=== PATIENT | male | born 1945 | race Caucasian/White ===

== ENCOUNTER 2017-12-15 22:00 | Observation (INO) | payer OTHER, BC ==
--- OUTSIDE RECORDS SUMMARY | 2017-12-15 22:02 | XMS REPORT | Clinical Summary ---
:1945 Author Organization [facility] Address [address] [place] [id number] Care Team Providers Name Role Phone Asked, No Pcp Primary Care Provider Unavailable Allergies Not on File Current Medications Not on file Active Problems Not on file Encounters Date Type Specialty Care Team Description 05/30/2017 Lab Lab George Limon Jr., Gout, unspecified cause, unspecified chronicity, unspecified site (Primary Dx) after 12/14/2016 Social History Tobacco Use Types Packs/Day Years Used Date Never Assessed Sex Assigned at Date Recorded Not on file Last Filed Vital Signs Not on file Plan of Treatment Health Maintenance Due Date Last Done Comments COLONOSCOPY 1997 SHINGRIX VACCINE (#1) 1997 ZOSTER VACCINE 2007 PNEUMOCOCCAL POLYSACCHARIDE VACCINE AGE 65 AND OVER 01/16/2012 PNEUMOCOCCAL-13 01/16/2012 INFLUENZA VACCINE 03/12/2018 Results Body fluid consult (05/30/2017 11:50 AM) Component Value Ref Range Body fluid consult DoneComment: PER DR. TREJO: RESULTS CORRELATE Specimen Performing Laboratory Fluid [facility] DEPARTMENT OF PATHOLOGY AND GENOMIC MEDICINE [address] [place] [address] Crystal analysis (05/30/2017 11:50 AM) Component Value Ref Range Crystal analysis specimen type Joint Monosodium urate None seen None seen CPPD crystals None seen None seen Specimen Performing Laboratory Fluid [facility] DEPARTMENT OF PATHOLOGY AND GENOMIC MEDICINE [address] [place] [address] Cell count and differential, body fluid (05/30/2017 11:50 AM) Component Value Ref Range Misc fluid type Synovial Color, fluid Pale yellow Appearance, fluid Slightly hazy RBC, fluid 4,888 /CMM Nucleated cells, fluid 2,675 /CMM Fluid mononuclear cell 13 Neutrophils, fluid 79 % Lymphocytes, fluid 8 % Specimen Performing Laboratory Fluid [facility] DEPARTMENT OF PATHOLOGY AND GENOMIC MEDICINE [address] [place] [address] after 12/14/2016 Insurance Payer Benefit Plan / Group Subscriber ID Type Phone Address MEDICARE MEDICARE PART A AND B xxxxxxxxxx Medicare [place], [place] BCBS BCBS CHOICE PPO/F[employer]ER[employer] EMPL PPO xxxxxxxxxxxx PPO Work: [address] [place], [place] Home: [id number]
--- OUTSIDE RECORDS SUMMARY | 2017-12-15 22:03 | XMS REPORT | Clinical Summary ---
:1945 Author Organization [facility] Address [address] [place] [address] Phone Care Team Providers Name Role Phone Unavailable Primary Care Provider Unavailable Allergies Active Allergy Reactions Severity Noted Date Comments Salicylates Anaphylaxis High 03/16/2014 Fish Containing Products Nausea And Vomiting 03/16/2014 Influenza Virus Vaccines Other (See Comments) 08/14/2014 fever Metoprolol 03/26/2016 Timolol Maleate Swelling 02/23/2016 Current Medications Prescription Sig. Disp. Refills Start End Status Date Date tamsulosin (FLOMAX) Take 0.4 mg by Active 0.4 mg Cp24 24 hr mouth daily. capsule docusate sodium Take 100 mg by Active (COLACE) 100 MG mouth daily. capsule multivitamin per Take 1 tablet by Active tablet mouth daily. insulin glargine Inject 25 Units Active (LANTUS) 100 subcutaneously unit/mL injection nightly Use as directed. coenzyme Q10 200 mg Take 200 mg by Active capsule mouth daily. cholecalciferol Take 1,000 Units Active (VITAMIN D3) 1,000 by mouth 2 (two) unit tablet times daily. insulin aspart Inject 5-15 Units Active (NOVOLOG) 100 subcutaneously 3 unit/mL injection (three) times daily before meals. azelastine 1 spray by Nasal Active (ASTELIN) 137 mcg route 2 (two) (0.1 %) nasal spray times daily Use in each nostril as directed . penicillin v Take 1 tablet (500 4 tablet 2 Active potassium (VEETID) mg total) by mouth 6 500 MG tablet as needed for up to 2 doses 3 tabs 1 hr prior to dental work and 1 tab 3 hrs after.. resveratrol 100 mg Take by mouth. Active Cap gemfibrozil (LOPID) Take 1 tablet (600 180 tablet 5 02/22/ Active 600 MG tablet mg total) by mouth 7 018 2 (two) times daily before meals. bromfenac Apply to eye(s). Active (PROLENSA) 0.07 % Drop ofloxacin (FLOXIN) 10 drops daily. Active 0.3 % otic solution prednisoLONE 1 drop 4 (four) Active acetate (PRED times daily. FORTE) 1 % ophthalmic suspension liraglutide 0.6 Inject 1.6 mg Active mg/0.1 mL (18 mg/3 subcutaneously mL) PnIj daily. sucralfate Take 1 g by mouth Active (CARAFATE) 1 gram 4 (four) times tablet daily. NIFEdipine (ADALAT Take 1 tablet (60 360 tablet 3 Active CC) 60 MG 24 hr mg total) by mouth 8 019 tabletIndications: 3 (three) times S/P AVR, Aortic daily 30 mg at stenosis, severe, bedtime. Hyperlipidemia, unspecified hyperlipidemia type, Essential hypertension with goal blood pressure less than 140/90, Bradycardia with 41-50 beats per minute cloNIDine HCl Take 1 tablet (0.2 270 tablet 3 Active (CATAPRES) 0.2 MG mg total) by mouth 8 019 tablet 3 (three) times daily. furosemide (LASIX) TAKE 1 TABLET BY 180 tablet 5 Active 80 MG tablet MOUTH TWICE DAILY 8 hydrALAZINE TAKE 1 TABLET BY 360 tablet 0 Active (APRESOLINE) 100 MG MOUTH FOUR TIMES 8 tabletIndications: DAILY Heart murmur, Palpitations cloNIDine HCl TAKE 1 TABLET BY 180 tablet 0 Active (CATAPRES) 0.2 MG MOUTH TWICE DAILY 8 tabletIndications: Aortic stenosis, severe, S/P AVR, Shortness of breath, Hyperlipidemia, unspecified hyperlipidemia type, Essential hypertension with goal blood pressure less than 140/90 NIFEdipine (ADALAT TAKE 1 TABLET BY 360 tablet 0 Active CC) 60 MG 24 hr MOUTH THREE TIMES 8 tabletIndications: DAILY S/P AVR, Aortic stenosis, severe, Hyperlipidemia, unspecified hyperlipidemia type, Essential hypertension with goal blood pressure less than 140/90, Bradycardia with 41-50 beats per minute hydrALAZINE Take 1 tablet (100 360 tablet 4 Discontinued (APRESOLINE) 100 MG mg total) by mouth 6 017 tabletIndications: 4 (four) times Heart murmur, daily for 90 days. Palpitations clopidogrel Take 1 tablet (75 30 tablet 3 (PLAVIX) 75 mg mg total) by mouth 7 018 tablet daily. albuterol HFA Inhale 2 puffs by 1 Inhaler 7 (VENTOLIN HFA) 90 mouth via inhaler 7 018 mcg/actuation every 4 (four) inhaler hours as needed for Wheezing or Shortness of Breath. furosemide (LASIX) Take 80 mg by Discontinued 20 MG mouth daily . 7 018 tabletIndications: S/P AVR, Aortic stenosis, severe, Hyperlipidemia, unspecified hyperlipidemia type, Essential hypertension with goal blood pressure less than 140/90, Bradycardia with 41-50 beats per minute NIFEdipine (ADALAT Take 1 tablet (60 360 tablet 3 Discontinued CC) 60 MG 24 hr mg total) by mouth 7 018 tabletIndications: 4 (four) times S/P AVR, Aortic daily 30 mg at stenosis, severe, bedtime. Hyperlipidemia, unspecified hyperlipidemia type, Essential hypertension with goal blood pressure less than 140/90, Bradycardia with 41-50 beats per minute cloNIDine HCl Take 1 tablet (0.1 270 tablet 3 Discontinued (CATAPRES) 0.1 MG mg total) by mouth 7 018 tablet 3 (three) times daily. NIFEdipine Take 1 tablet (90 90 tablet 3 Discontinued (PROCARDIA XL) 90 mg total) by mouth 7 018 MG (OSM) 24 hr daily. tablet furosemide (LASIX) TAKE 1 TABLET BY 180 tablet 0 Discontinued 80 MG tablet MOUTH TWICE DAILY 7 018 hydrALAZINE TAKE 1 TABLET BY 360 tablet 0 Discontinued (APRESOLINE) 100 MG MOUTH FOUR TIMES 7 018 tabletIndications: DAILY Heart murmur, Palpitations cloNIDine HCl Take 2 tablets 270 tablet 3 Discontinued (CATAPRES) 0.1 MG (0.2 mg total) by 8 018 tablet mouth 3 (three) times daily. predniSONE Take 3 tablets (15 21 tablet 0 (DELTASONE) 5 MG mg total) by mouth 8 018 tablet daily for 7 days. temazepam Take 1 capsule (15 30 capsule 2 (RESTORIL) 15 mg mg total) by mouth 8 018 capsule every night as needed for Sleep for up to 30 days. Max Daily Amount: 15 mg Active Problems Problem Noted Date Pulmonary edema 08/10/2017 Acute exacerbation of CHF (congestive heart failure) ([facility]) 08/10/2017 Chest pain 07/18/2016 Acute on chronic renal insufficiency 07/18/2016 Hypertensive urgency 07/18/2016 Symptomatic bradycardia 03/26/2016 Bradycardia with 41-50 beats per minute 03/26/2016 Essential hypertension with goal blood pressure less than 140/90 03/22/2016 Hyperlipidemia, unspecified hyperlipidemia type 02/21/2016 Shortness of breath 08/14/2014 Fever 08/14/2014 S/P AVR 05/04/2014 CAD (coronary artery disease) 05/04/2014 Aortic stenosis, severe 04/21/2014 Encounters Date Type Specialty Care Team Description 11/12/2017 Procedure Pass 10/01/2017 Office Visit Cardiology Pete Granger James T., MD severe (Primary Dx);S/P AVR;Hyperlipidemia, unspecified hyperlipidemia type;Essential hypertension with goal blood pressure less than 140/90;Hypertensive urgency;Acute on chronic renal insufficiency 10/01/2017 Refill Cardiology [place] S/P AVR;Aortic Ely Cramer MD stenosis, severe;Hyperlipidemia, unspecified hyperlipidemia type;Essential hypertension with goal blood pressure less than 140/90;Bradycardia with 41-50 beats per minute 10/01/2017 Orders Only General Internal Medicine 09/20/2017 Refill Cardiology Pete Granger James T., MD severe;S/P AVR;Shortness of breath;Hyperlipidemia, unspecified hyperlipidemia type;Essential hypertension with goal blood pressure less than 140/90 09/20/2017 Refill Cardiology [place] [facility] Ely Cramer MD murmur;Palpitations 09/12/2017 Refill Cardiology Ely Granger MD 08/22/2017 Office Visit Cardiology [place] Aortic stenosisEly MD severe (Primary Dx);S/P AVR;Shortness of breath;Hyperlipidemia, unspecified hyperlipidemia type;Essential hypertension with goal blood pressure less than 140/90 08/10/2017 - [facility] [place] Shortness of breath 08/15/2017 Encounter (Primary Dx);Acute [place] congestive heart Ely Cramer MD failure, unspecified Robel Hess congestive heart MD Finn failure type ([facility]);Anasarca;Hyperte nsive urgency;S/P AVR;Aortic stenosis, severe;Hyperlipidemia, unspecified hyperlipidemia type;Essential hypertension with goal blood pressure less than 140/90;Bradycardia with 41-50 beats per minute 08/10/2017 Orders Only General Internal Medicine 07/09/2017 [facility] Nasal congestion;Cough Encounter MD Zita 07/09/2017 [facility] Nasal congestion;Cough Encounter MD Zita 07/09/2017 Outside Orders [facility] Nasal congestion MD Zita (Primary Dx);Cough 06/23/2017 Refill Cardiology [place] [facility] Ely Cramer MD murmur;Palpitations 06/09/2017 Refill Cardiology Ely Granger MD 05/21/2017 Office Visit Cardiology [place] Aortic stenosisEly MD severe (Primary Dx);S/P AVR;Shortness of breath;Hyperlipidemia, unspecified hyperlipidemia type;Essential hypertension with goal blood pressure less than 140/90;Symptomatic bradycardia;Bradycardi a with 41-50 beats per minute;Acute on chronic renal insufficiency;Hyperten sive urgency 05/21/2017 Orders Only General Internal Medicine 04/29/2017 Hospital Radiology Irr, [place] Myelopathy Encounter MD Chandler ([facility]);Bradycardia with 41-50 beats per minute 03/15/2017 Hospital Radiology Irr, [place] Lumbar stenosis with Rickey Arteaga MD neurogenic claudication 03/15/2017 Hospital Radiology Irr, [place] Cervical myelopathy Encounter MD Chandler ([facility]) 03/07/2017 Outside Orders Central Scheduling IrrLamonte Cervical myelopathy MD Chandler ([facility]) (Primary Dx);Lumbar stenosis with neurogenic claudication;Myelopath y ([facility]) 03/01/2017 Telephone Cardiology Ely Granger MD 02/27/2017 Procedure visit Radiology Pete Granger James T., MD severe;S/P AVR;Shortness of breath;Hyperlipidemia, unspecified hyperlipidemia type;Essential hypertension with goal blood pressure less than 140/90;Acute on chronic renal insufficiency;Hyperten sive urgency;Claudication of both lower extremities (HCC) 02/22/2017 Office Visit Cardiology [place] Claudication of both Ely Cramer MD lower extremities (HCC) (Primary Dx);Aortic stenosis, severe;S/P AVR;Shortness of breath;Hyperlipidemia, unspecified hyperlipidemia type;Essential hypertension with goal blood pressure less than 140/90;Acute on chronic renal insufficiency;Hyperten sive urgency 02/22/2017 Orders Only General Internal Medicine 01/28/2017 Office Visit Cardiology Pete Granger James T., MD severe (Primary Dx);S/P AVR;Shortness of breath;Hyperlipidemia, unspecified hyperlipidemia type;Essential hypertension with goal blood pressure less than 140/90;Acute on chronic renal insufficiency;Hyperten sive urgency after 12/14/2016 Family History Medical History Relation Name Comments Heart disease Father Diabetes Maternal Aunt COPD Mother COPD Diabetes Paternal Uncle Relation Name Status Comments Father Maternal Aunt Mother Paternal Uncle Social History Tobacco Use Types Packs/Day Years Used Date Never Smoker Smokeless Tobacco: Never Used Alcohol Use Drinks/Week oz/Week Comments No Sex Assigned at Date Recorded Not on file Last Filed Vital Signs Vital Sign Reading Time Taken Blood Pressure 188/81 10/01/2017 9:44 AM [employer] Pulse 76 10/01/2017 9:39 AM [employer] Temperature 37 C (98.6 F) 10/01/2017 9:39 AM [employer] Respiratory Rate 18 10/01/2017 9:39 AM [employer]ERSON Oxygen Saturation 96% 10/01/2017 9:39 AM [employer] Inhaled Oxygen Concentration - - Weight 97.5 kg (215 lb) 10/01/2017 9:39 AM [employer] P[employer] Height 177.8 cm (5' 10") 10/01/2017 9:39 AM [employer] Body Mass Index 30.85 10/01/2017 9:39 AM [employer] Plan of Treatment Date Type Specialty Care Team Description 12/24/2017 Office Visit Cardiology Ely Granger MD [facility] [address] [place] [address] [phone] Implants Implanted Type Area Machine Repair Person Device Expiration Model / Identifier Date Serial / Lot Lead Pacemkr Capsur Novus 45cm 5076-45 - [id number] Pacemaker N/A: [employer]: CARD 05/10/2018 5076-45 / Implanted: Qty: 1 on 07/20/2016 by Bob Gallegos MD Lead Heart RHY:DISEASE MGT [id number] / Lead Pacemkr Capsur Novus 58x1 5076-58 - [id number] Pacemaker Left: [employer] :CARD 03/16/2018 5076-58 / Implanted: Qty: 1 on 07/20/2016 by Bob Gallegos MD Lead Heart RHY:DISEASE MGT [id number] / Pacemaker Ipg Advisa [id number] - [id number] Pacemakers Left: [employer]:CARD 11/06/2017 [id number] / Implanted: Qty: 1 on 07/20/2016 by Bob Gallegos MD Chest RHY:DISEASE MGT [id number] / Wall Valve,Trifecta 21mm Tissue Aortic Supra Annular Stented Titanium Strl Lf - [id number] Valves N/A: [employer] 01/03/2016 [id number] / Implanted: Qty: 1 on 04/23/2014 by Jesús Zhao MD [employer] [id number] / Results ECG 12 lead (10/01/2017 10:41 AM)Only the most recent of5 resultswithin the time period is included. Specimen Performing Laboratory [facility] Ventricular Rate 69 BPM Atrial Rate 69 BPM P-R Interval 180 ms QRS Duration 154 ms Q-T Interval 442 ms QTC Calculation(Bazett) 473 ms P [place] 77 degrees R [place] -47 degrees T [place] 54 degrees Sinus rhythm with Premature supraventricular complexes Right bundle branch block Left anterior fascicular block Bifascicular block Left ventricular hypertrophy with QRS widening and repolarization abnormality Abnormal ECG When compared with ECG of 22-AUG-2017 09:55, Sinus rhythm has replaced Electronic ventricular pacemaker Confirmed by MD ELKIN, ELY Khan ([id number]) on 10/02/2017 10:30:08 AM Procedure Note Interface, External Ris In - 10/02/2017 10:30 AM [employer] Ventricular Rate 69 BPM Atrial Rate 69 BPM P-R Interval 180 ms QRS Duration 154 ms Q-T Interval 442 ms QTC Calculation(Bazett) 473 ms P [place] 77 degrees R [place] -47 degrees T [place] 54 degrees Sinus rhythm with Premature supraventricular complexes Right bundle branch block Left anterior fascicular block Bifascicular block Left ventricular hypertrophy with QRS widening and repolarization abnormality Abnormal ECG When compared with ECG of 22-AUG-2017 09:55, Sinus rhythm has replaced Electronic ventricular pacemaker Confirmed by MD ELKIN, ELY Khan ([id number]) on 10/02/2017 10:30:08 AM CBC with platelet count + automated diff (10/01/2017 9:37 AM)Only the most recent of7 resultswithin the time period is included. Component Value Ref Range WBC 6.2 3.5 - 10.5 K/L RBC 3.30 (L) 4.63 - 6.08 M/L Hemoglobin 10.1 (L) 13.7 - 17.5 GM/DL Hematocrit 29.4 (L) 40.1 - 51.0 % MCV 89.1 79.0 - 92.2 fL MCH 30.6 25.7 - 32.2 pg MCHC 34.4 32.3 - 36.5 GM/DL RDW 12.7 11.6 - 14.4 % Platelets 263 150 - 450 K/CU MM MPV 10.7 9.4 - 12.4 fL nRBC 0 0 - 0 /100 WBC % Neutros 53 % % Lymphs 35 % % Monos 10 % % Eos 2 % % Baso 0 % # Neutros 3.28 1.78 - 5.38 K/L # Lymphs 2.18 1.32 - 3.57 K/L # Monos 0.59 0.30 - 0.82 K/L # Eos 0.12 0.04 - 0.54 K/L # Baso 0.02 0.01 - 0.08 K/L Immature Granulocytes-Relative 1 0 - 1 % Specimen Performing Laboratory Blood [facility] [address] [address] CBC with platelet count + automated diff (10/01/2017 9:37 AM)Only the most recent of7 resultswithin the time period is included. Specimen Performing Laboratory Blood Narrative The following orders were created for panel order CBC with platelet count + automated diff. Procedure Abnormality Status --------- ------ CBC with platelet count ...[[id number]]AbnormalFinal result Please view results for these tests on the individual orders. TSH (10/01/2017 9:37 AM)Only the most recent of4 resultswithin the time period is included. Component Value Ref Range TSH 3.01 0.35 - 4.94 uIU/mL Specimen Performing Laboratory Blood [address] [address] PSA (10/01/2017 9:37 AM)Only the most recent of4 resultswithin the time period is included. Component Value Ref Range PSA 12.5 (H) 0.0 - 4.0 ng/mL Specimen Performing Laboratory Blood [address] [address] B-type Natriuretic Factor (BNP) (10/01/2017 9:37 AM)Only the most recent of8 resultswithin the time period is included. Component Value Ref Range BNP 763 (H) 0 - 100 pg/mL Specimen Performing Laboratory Blood [address] [address] Liver Function Panel (10/01/2017 9:37 AM)Only the most recent of4 resultswithin the time period is included. Component Value Ref Range Protein, Total 7.5 6.0 - 8.3 gm/dL Albumin 4.1 3.5 - 5.0 g/dL Total Bilirubin 0.5 0.2 - 1.2 mg/dL Bilirubin, Direct 0.1 0.1 - 0.5 mg/dL Alkaline Phosphatase 68 40 - 150 U/L AST 16 5 - 34 U/L ALT 13 6 - 55 U/L Specimen Performing Laboratory Blood [address] [address] Lipid panel (10/01/2017 9:37 AM)Only the most recent of4 resultswithin the time period is included. Component Value Ref Range Triglycerides 184 mg/dL Cholesterol 265 mg/dL HDL 29 mg/dL LDL Calculated 199 mg/dL Specimen Performing Laboratory [address] [address] Narrative Triglyceride Reference Range: Low Risk <150 [id number] High Risk 200-499 Very High Risk>=500 Cholesterol Reference Range: Low Risk <200 [id number] High Risk>240 HDL Cholesterol Reference Range: Low Risk >=60 High Risk <40 LDL Cholesterol Reference Range: Optimal<100 Near Ekasidm843-342 [id number] Dnng050-100 Very High >=190 Basic Metabolic Panel (10/01/2017 9:37 AM)Only the most recent of10 resultswithin the time period is included. Component Value Ref Range Sodium 136 136 - 145 meq/L Potassium 3.7 3.5 - 5.1 meq/L Chloride 101 98 - 107 meq/L CO2 23 22 - 29 meq/L BUN 55 (H) 7 - 21 mg/dL Creatinine 3.01 (H) 0.57 - 1.25 mg/dL Glucose 150 (H) 70 - 105 mg/dL Calcium 10.1 8.4 - 10.2 mg/dL EGFR 21Comment: ESTIMATED GFR IS NOT ACCURATE mL/min/1.73 sq m CREATININE CLEARANCE IN PREDICTING GLOMERULAR FILTRATION RATE. ESTIMATED GFR IS NOT APPLICABLE FOR DIALYSIS PATIENTS. Specimen Performing Laboratory Blood [address] [address] RHYTHM STRIP - SCAN (08/16/2017 1:52 PM)POC-Glucose meter (08/15/2017 12:04 PM) Only the most recent of21 resultswithin the time period is included. Component Value Ref Range POC-Glucose Meter 206 (H)Comment: TESTED AT [address] 70 - 110 mg/[place] [id number] Specimen Performing Laboratory Blood [address] [address] aPTT (08/15/2017 6:34 AM)Only the most recent of10 resultswithin the time period is included. Component Value Ref Range PTT 112.0 (H) 22.5 - 36.0 seconds Specimen Performing Laboratory Blood [address] [address] Magnesium (08/15/2017 5:16 AM)Only the most recent of6 resultswithin the time period is included. Component Value Ref Range Magnesium 1.9 1.6 - 2.6 mg/dL Specimen Performing Laboratory Blood - Arm, Right [address] [address] ECHOCARDIOGRAM REPORT - SCAN (08/13/2017 4:59 PM)2D Echo W/Doppler(CW/PW/Color ) (08/13/2017 8:13 AM) Component Value Ref Range Ejection Fraction Specimen Performing Laboratory [facility] E[facility] EFRAIN CPACS Narrative Transthoracic Echocardiography Report (TTE) Demographics Patient NameHUSEYIN ALARCON Date of Study08/13/2017 Michela WONG Male Visit [id number] Unknown Room NumberOP Number Date of 1945Referring Yenny Poole Physician Age 72 year(s)SonographerOscar Carl, [facility] Employment Trainer Marjan Gale, NADJACSInterpreting Quinton Martin, PhysicianMD Procedure Type of Study TTE procedure:2DECHO W DOPPLER(CW/PW/COLOR) (Routine) Indications:Shortness of breath. Clinical History A/V PROS. CKD, DIABETES, HTN, CANCER, COPD, ARRHYTHMIA, GOUT HGB 9.4 HCT 28.6 % Contrast Medium: Definity. Amount - 2 ml Height: 70 inches Weight: 98.88 kg (218 lbs) BSA: 2.17 m^2 BMI: 31.28 kg/m^2 HR: 69 bpm BP: 226/96 mmHg Summary LV endocardium is adequately visualized with IV ultrasound enhancing agent. The left ventricle is chamber size (by vol index) is normal (male - LVED vol - 34-74ml/m2). No evidence of LV hypertrophy. All of the LV segments contract normally . Global LV systolic function normal . LVEF by Thomason's method of disk assessment is normal (>60%) . The LVEF was measured using Thomason's bi-plane method of disk . Grade 2 diastolic dysfunction (moderately increased LA pressure). A stented biologic AoV prosthesis is visualized . The prosthetic AoV appears well-seated. No evidence of aortic regurgitation. Previous Study In comparison with the prior exam on 08/30/2016 there are no significant changes. Signature Findings Technical Quality: Technically adequate exam. Rhythm/BPRegular sinus rhythm during the exam. Left Ventricle LV endocardium is adequately visualized with IV ultrasound enhancing agent. The left ventricle is chamber size (by vol index) is normal (male - LVED vol - 34-74ml/m2). No evidence of LV hypertrophy. All of the LV segments contract normally . Global LV systolic function normal . LVEF by Thomason's method of disk assessment is normal (>60%) . The LVEF was measured using Thomason's bi-plane method of disk . Grade 2 diastolic dysfunction (moderately increased LA pressure). Left AtriumLA size is severely enlarged (>48 ml/m2) . Right VentricleRV chamber size appears mildly enlarged by limited views . Global RV systolic function is normal . Right Atrium The RA is well visualized. RA cavity size is normal . Aortic Valve A stented biologic AoV prosthesis is visualized . The prosthetic AoV appears well-seated. No evidence of aortic regurgitation. Mitral Valve Mild MV leaflet thickening. Mild mitral regurgitation. Mild mitral annular calcification. Tricuspid ValveTV structure is normal. A trace of tricuspid regurgitation. Unable to estimate peak systolic PA pressure; inadequate TR velocity signal. Pulmonic Valve Normal PV structure and function by limited views and Doppler. AortaAortic root size (SInus of Valsalva diameter) is normal . PericardiumNo pericardial effusion is visualized. IVC/SVC/PA/PV/PleuralThe inferior vena cava is adequately visualized. The inferior vena cava size is normal . The estimated RA pressure by IVC dynamics 5-10mmHg . Chambers/Structures Left Atrium LA Volume: 108.36 mlLA Area: 29.12 cm^ 2 LA Vol. Index: 50 ml/m^2 Left Ventricle LVIDd: 4.98 cm LVIDs: 2.22 cm LV Septum Diastolic: 1.15 cm LV PW Diastolic: 1.11 cmLV FS: 55.4 % LVEDV Thomason's:117.41 ml LVESV Thomason's:39.69 mlLVEDVI: 54 ml/ m^2 LVEF Thomason's: 64.2 %LVESVI: 18 ml/m^2 LVOT Diameter: 1.93 cm Aorta Ao Root S of Madhuri.: 2.32 cm Doppler/Quantitative Measurements Mitral Valve MV Peak E-Wave: 1.19 m/sMV Peak A-Wave: 1.05 m/s E/ A Ratio: 1.14 Peak Gradient: 5.69 mmHg Deceleration Time: 149.3 msec MV Slick. Peak: Tissue Doppler E' Septal Velocity: 0.06 m/sA' Septal Velocity: 0.08 m/s E/ E': 19.96 Aortic Valve Peak Velocity: 2.34 m/sMean Velocity: 1.45 m/s Peak Gradient: 21.99 mmHgMean Gradient: 9.87 mmHg AV Area (continuity): 1.51 cm^2 AV VTI: 48.94 cm AV DVI: 0.52 LVOT Peak Velocity: 1.21 m/s Peak Gradient: 5.89 mmHg Mean Velocity: 0.73 m/s Mean Gradient: 2.53 mmHg LVOT Diameter: 1.93 cmLVOT VTI: 25.35 cm LVOT Area: 2.93 cm^2LVOT SV:74.12 ml LVOT CO: 5.11 l/min LVOT CI: 2.35 l/min/m^2 Procedure Note Interface, External Ris In - 08/13/2017 4:03 PM [employer] SALES PERSON Transthoracic Echocardiography Report (TTE) Demographics Patient Name HUSEYIN ALARCON Date of Study 08/13/2017 Michela WONG Gender Male Visit Number [id number] Race Unknown Room Number OP Number Date of 1945 Referring Yenny Poole Physician Age 72 year(s) Commercial Carpet Installer Juarez Henry, [facility] Employment Trainer Marjan Gale RDCS Interpreting Quinton Martin, Physician Procedure Type of Study TTE procedure:2DECHO W DOPPLER(CW/PW/COLOR) (Routine) Indications:Shortness of breath. Clinical History A/V PROS. CKD, DIABETES, HTN, CANCER, COPD, ARRHYTHMIA, GOUT HGB 9.4 HCT 28.6 % Contrast Medium: Definity. Amount - 2 ml Height: 70 inches Weight: 98.88 kg (218 lbs) BSA: 2.17 m^2 BMI: 31.28 kg/m^2 HR: 69 bpm BP: 226/96 mmHg Summary LV endocardium is adequately visualized with IV ultrasound enhancing agent. The left ventricle is chamber size (by vol index) is normal (male - LVED vol - 34-74ml/m2). No evidence of LV hypertrophy. All of the LV segments contract normally . Global LV systolic function normal . LVEF by Thomason's method of disk assessment is normal (>60%) . The LVEF was measured using Thomason's bi-plane method of disk . Grade 2 diastolic dysfunction (moderately increased LA pressure). A stented biologic AoV prosthesis is visualized . The prosthetic AoV appears well-seated. No evidence of aortic regurgitation. Previous Study In comparison with the prior exam on 08/30/2016 there are no significant changes. Signature Findings Technical Quality: Technically adequate exam. Rhythm/BP Regular sinus rhythm during the exam. Left Ventricle LV endocardium is adequately visualized with IV ultrasound enhancing agent. The left ventricle is chamber size (by vol index) is normal (male - LVED vol - 34-74ml/m2). No evidence of LV hypertrophy. All of the LV segments contract normally . Global LV systolic function normal . LVEF by Thomason's method of disk assessment is normal (>60%) . The LVEF was measured using Thomason's bi-plane method of disk . Grade 2 diastolic dysfunction (moderately increased LA pressure). Left Atrium LA size is severely enlarged (>48 ml/m2) . Right Ventricle RV chamber size appears mildly enlarged by limited views . Global RV systolic function is normal . Right Atrium The RA is well visualized. RA cavity size is normal . Aortic Valve A stented biologic AoV prosthesis is visualized . The prosthetic AoV appears well-seated. No evidence of aortic regurgitation. Mitral Valve Mild MV leaflet thickening. Mild mitral regurgitation. Mild mitral annular calcification. Tricuspid Valve TV structure is normal. A trace of tricuspid regurgitation. Unable to estimate peak systolic PA pressure; inadequate TR velocity signal. Pulmonic Valve Normal PV structure and function by limited views and Doppler. Aorta Aortic root size (SInus of Valsalva diameter) is normal . Pericardium No pericardial effusion is visualized. IVC/SVC/PA/PV/Pleural The inferior vena cava is adequately visualized. The inferior vena cava size is normal . The estimated RA pressure by IVC dynamics 5-10mmHg . Chambers/Structures Left Atrium LA Volume: 108.36 ml LA Area: 29.12 cm^2 LA Vol. Index: 50 ml/m^2 Left Ventricle LVIDd: 4.98 cm LVIDs: 2.22 cm LV Septum Diastolic: 1.15 cm LV PW Diastolic: 1.11 cm LV FS: 55.4 % LVEDV Thomason's:117.41 ml LVESV Thomason's:39.69 ml LVEDVI: 54 ml/m^2 LVEF Thomason's: 64.2 % LVESVI: 18 ml/m^2 LVOT Diameter: 1.93 cm Aorta Ao Root S of Madhuri.: 2.32 cm Doppler/Quantitative Measurements Mitral Valve MV Peak E-Wave: 1.19 m/s MV Peak A-Wave: 1.05 m/s E/A Ratio: 1.14 Peak Gradient: 5.69 mmHg Deceleration Time: 149.3 msec MV Slick. Peak: Tissue Doppler E' Septal Velocity: 0.06 m/s A' Septal Velocity: 0.08 m/s E/E': 19.96 Aortic Valve Peak Velocity: 2.34 m/s Mean Velocity: 1.45 m/s Peak Gradient: 21.99 mmHg Mean Gradient: 9.87 mmHg AV Area (continuity): 1.51 cm^2 AV VTI: 48.94 cm AV DVI: 0.52 LVOT Peak Velocity: 1.21 m/s Peak Gradient: 5.89 mmHg Mean Velocity: 0.73 m/s Mean Gradient: 2.53 mmHg LVOT Diameter: 1.93 cm LVOT VTI: 25.35 cm LVOT Area: 2.93 cm^2 LVOT SV:74.12 ml LVOT CO: 5.11 l/min LVOT CI: 2.35 l/min/m^2 Troponin I (08/13/2017 5:15 AM)Only the most recent of5 resultswithin the time period is included. Component Value Ref Range Troponin I 0.41 (HH) 0.00 - 0.03 ng/mL Specimen Performing Laboratory Blood - Arm, [address] [address] Narrative Troponin I (TnI) levels must be interpreted in the context of the presenting symptoms and the clinical findings. Elevated TnI levels indicate myocardial damage, but are not specific for ischemic heart disease. Elevated TnI levels are seen in patients with other cardiac conditions (including myocarditis and congestive heart failure), and slight TnI elevations occur in patients with other conditions, including sepsis, renal failure, acidosis, acute neurological disease, and persistent tachyarrhythmia. CBC (Hemogram only) (08/13/2017 5:15 AM)Only the most recent of3 resultswithin the time period is included. Component Value Ref Range WBC 7.2 3.5 - 10.5 K/L RBC 3.18 (L) 4.63 - 6.08 M/L Hemoglobin 9.4 (L) 13.7 - 17.5 GM/DL Hematocrit 28.6 (L) 40.1 - 51.0 % MCV 89.9 79.0 - 92.2 fL MCH 29.6 25.7 - 32.2 pg MCHC 32.9 32.3 - 36.5 GM/DL RDW 12.9 11.6 - 14.4 % Platelets 255 150 - 450 K/CU MM MPV 11.6 9.4 - 12.4 fL nRBC 0 0 - 0 /100 WBC Specimen Performing Laboratory Blood - Arm, [address] [address] Uric acid (08/13/2017 5:15 AM) Component Value Ref Range Uric Acid 9.4 (H) 2.6 - 7.2 mg/dL Specimen Performing Laboratory Blood - Arm, [address] [address] Respiratory Panel [facility] (08/10/2017 4:37 PM) Component Value Ref Range Human Metapneumovirus Not detected Not detected, Inconclusive Rhinovirus Not detected Not detected, Inconclusive Influenza A Not detected Not detected, Inconclusive Influenza A subtype H1 Not detected Not detected, Inconclusive Influenza A Subtype H3 Not detected Not detected, Inconclusive Influenza A Subtype H1-2009 Not detected Not detected, Inconclusive Influenza B Not detected Not detected, Inconclusive Respiratory Syncytial Virus Not detected Not detected, Inconclusive Parainfluenza Virus 1 Not detected Not detected, Inconclusive Parainfluenza Virus 2 Not detected Not detected, Inconclusive Parainfluenza virus 3 Not detected Not detected, Inconclusive Parainfluenza Virus 4 Not detected Not detected, Inconclusive Adenovirus Not detected Not detected, Inconclusive Coronavirus 229E Not detected Not detected, Inconclusive Coronavirus HKU1 Not detected Not detected, Inconclusive Coronavirus NL63 Not detected Not detected, Inconclusive Coronavirus OC43 Not detected Not detected, Inconclusive Bordetella Pertussis Not detected Not detected, Inconclusive Chlamydophila Pneumoniae Not detected Not detected, Inconclusive Mycoplasma Pneumoniae Not detected Not detected, Inconclusive Specimen Performing Laboratory Nasopharyngeal - Nasopharyngeal Swab [address] [address] Hemoglobin A1c (08/10/2017 4:34 PM) Component Value Ref Range Hemoglobin A1C 6.1 4.3 - 6.1 % Specimen Performing Laboratory Blood [address] [address] BCID (08/10/2017 7:30 AM) Component Value Ref Range Scan Result Specimen Performing Laboratory Blood [facility] [id number] [place] [address] Blood culture (08/10/2017 7:30 AM) Component Value Ref Range Result No growth in 5 days Specimen Performing Laboratory Blood - Arm, Left [address] [address] Influenza A H1N1 PCR (08/10/2017 7:29 AM) Component Value Ref Range Influenza A RNA Not Detected Not Detected, Inconclusive Novel H1N1 RNA Not Detected Not Detected, Inconclusive Specimen Performing Laboratory Nasal - Nasopharyngeal Swab [address] [address] Narrative These assays were performed by real-time RT-PCR (briar cutter-PCR) utilizing fluorogenic hydrolysis probe technology for the detection of human Influenza A viruses and the differential detection of novel H1N1 Influenza virus in respiratory specimens. The test is composed of (1) an RNA extraction from patient specimen, and (2) briar cutter- PCR amplification and detection with human Influenza A and novel [id number] primers and probes. A well-conserved region of the Influenza A matrix gene is targeted in one set of reactions to identify both seasonal Influenza A and novel H1N1 Influenza virus in the specimen.In addition, a specific region of the hemagglutinin gene is targeted to differentiate the novel H1N1 virus from the seasonal human influenza. An internal control is used to confirm PCR amplification.Genetic variation and other factors can affect the accuracy of nucleic acid testing; therefore, the results should be interpreted in light of clinical data. This test was developed and its performance characteristics determined by the [facility] Pathology Department, Section of Molecular Pathology.It has not been cleared or approved by the U.S. Food and Drug Administration (FDA).Since FDA approval is not required for clinical use of the test, validation was done as required by The Clinical Laboratory Amendments of 1988. These assays were performed by real-time RT-PCR (briar cutter-PCR) utilizing fluorogenic hydrolysis probe technology for the detection of human Influenza A viruses and the differential detection of novel H1N1 Influenza virus in respiratory specimens. The test is composed of (1) an RNA extraction from patient specimen, and (2) briar cutter- PCR amplification and detection with human Influenza A and novel [id number] primers and probes. A well-conserved region of the Influenza A matrix gene is targeted in one set of reactions to identify both seasonal Influenza A and novel H1N1 Influenza virus in the specimen.In addition, a specific region of the hemagglutinin gene is targeted to differentiate the novel H1N1 virus from the seasonal human influenza. An internal control is used to confirm PCR amplification.Genetic variation and other factors can affect the accuracy of nucleic acid testing; therefore, the results should be interpreted in light of clinical data. This test was developed and its performance characteristics determined by the [facility] Pathology Department, Section of Molecular Pathology.It has not been cleared or approved by the U.S. Food and Drug Administration (FDA).Since FDA approval is not required for clinical use of the test, validation was done as required by The Clinical Laboratory Amendments of 1988. Rapid Influenza A&B Screen (08/10/2017 7:29 AM) Component Value Ref Range Rapid Influenza A Antigen Negative Negative, Inconclusive Rapid influenza B Antigen Negative Negative, Inconclusive Specimen Performing Laboratory Nasal - Nasopharyngeal Swab [address] [address] PT/PTT (08/10/2017 7:09 AM) Component Value Ref Range Protime 14.8 (H) 11.7 - 14.7 seconds INR 1.2 <=5.9 PTT 34.1 22.5 - 36.0 seconds Specimen Performing Laboratory Blood [address] [address] Narrative RECOMMENDED COUMADIN/WARFARIN INR THERAPY RANGES STANDARD DOSE: 2.0 - 3.0 Includes: PROPHYLAXIS for venous thrombosis, systemic embolization; TREATMENT for venous thrombosis and/or pulmonary embolus. HIGH RISK: Target INR is 2.5-3.5 for patients with mechanical heart valves. Creatine Kinase (CK), Total and MB (08/10/2017 7:09 AM) Component Value Ref Range Total CK 102 29 - 200 U/L CK-MB 1.8 0.0 - 6.6 ng/mL MB Relative Index 1.8 % Specimen Performing Laboratory Blood [address] [address] Narrative CK-MB Reference Range: <6.7Normal 6.7-10.0Borderline >10.0 Abnormal XR chest 2 views (08/10/2017 6:36 AM)Only the most recent of2 resultswithin the time period is included. Specimen Performing Laboratory [facility] Narrative FINAL REPORT RAD, CHEST, 2 VIEWS INDICATION: SHORTNESS OF BREATH COMPARISON: Prior day's exam TECHNIQUE: Portable frontal view of the chest. IMPRESSION: Stable ICD Stable, prominent cardiac silhouette. Increased interstitial prominence, particularly at the lung bases where there is blunting of the costophrenic angles. Findings are compatible with pulmonary interstitial edema and small bilateral effusions. No acute osseous abnormality. Signed: Ashley Gupta MD Report Verified Date/Time:08/10/2017 06:43:10 Reading Location: [facility] [id number] Ortho Consult Reading Room Procedure Note Interface, External Ris In - 08/10/2017 6:45 AM COUNTER SALES PERSON FINAL REPORT RAD, CHEST, 2 VIEWS INDICATION: SHORTNESS OF BREATH COMPARISON: Prior day's exam TECHNIQUE: Portable frontal view of the chest. IMPRESSION: Stable ICD Stable, prominent cardiac silhouette. Increased interstitial prominence, particularly at the lung bases where there is blunting of the costophrenic angles. Findings are compatible with pulmonary interstitial edema and small bilateral effusions. No acute osseous abnormality. Signed: Ashley Gupta MD Report Verified Date/Time: 08/10/2017 06:43:10 Reading Location: [facility] [id number] Ortho Consult Reading Room sinuses paranasal 3 views min (07/09/2017 2:40 PM) Specimen Performing Laboratory [facility] Narrative FINAL REPORT Sinus series: Clinical History:R05 R . Comparison:No comparison Views:Three Report: The frontal, ethmoid, sphenoid and maxillary sinuses are well visualized. There is no evidence of mucosal thickening.There is no evidence of an air fluid level.The bone mineralization is within normal limits. The mastoid air cells are well aerated. The visualized regional skeleton is unremarkable Impression: Unremarkable sinus series. Signed: Pastora Markham MD Report Verified Date/Time:07/09/2017 15:27:03 Reading Location: [address] Radiology Reading Room Procedure Note Interface, External Ris In - 07/09/2017 3:29 PM COUN[employer] SALES PERSON FINAL REPORT Sinus series: Clinical History: R05 R .81 Comparison: No comparison Views: Three Report: The frontal, ethmoid, sphenoid and maxillary sinuses are well visualized. There is no evidence of mucosal thickening. There is no evidence of an air fluid level. The bone mineralization is within normal limits. The mastoid air cells are well aerated. The visualized regional skeleton is unremarkable Impression: Unremarkable sinus series. Signed: Pastora Markham MD Report Verified Date/Time: 07/09/2017 15:27:03 Reading Location: [address] Radiology Reading Room THMIA IMPLANT REPORT - SCAN (05/17/2017 1:42 PM)Only the most recent of3 resultswithin the time period is included.MR thoracic spine without IV contrast (04/29/2017 11:05 AM) Specimen Performing Laboratory [facility] Narrative FINAL REPORT MRI thoracic spine without contrast 04/29/2017 at 1049. CLINICAL HISTORY: Myelopathy. TECHNIQUE: Noncontrast MRI of the thoracic spine was performed, utilizing sagittal T1, T2, STIR, axial T1 and T2-weighted sequences. COMPARISON: None available. FINDINGS: The spinal cord is normal in size and signal intensity. There is no fracture or subluxation. Bone marrow signal intensity is unremarkable. The spinal canal is of normal diameter. There are mild degenerative changes involving the intervertebral disks and facet joints, without remarkable central canal or foraminal stenosis. The paraspinal soft tissue is unremarkable. IMPRESSION: 1. Normal thoracic spinal cord. 2. Mild degenerative changes, without remarkable central canal or foraminal stenosis. Signed: Gustabo Sheppard MD Report Verified Date/Time:04/29/2017 11:27:33 Reading Location: [address] Neuro Reading Room Procedure Note Interface, External Ris In - 04/29/2017 11:29 AM CDT FINAL REPORT MRI thoracic spine without contrast 04/29/2017 at 1049. CLINICAL HISTORY: Myelopathy. TECHNIQUE: Noncontrast MRI of the thoracic spine was performed, utilizing sagittal T1, T2, STIR, axial T1 and T2-weighted sequences. COMPARISON: None available. FINDINGS: The spinal cord is normal in size and signal intensity. There is no fracture or subluxation. Bone marrow signal intensity is unremarkable. The spinal canal is of normal diameter. There are mild degenerative changes involving the intervertebral disks and facet joints, without remarkable central canal or foraminal stenosis. The paraspinal soft tissue is unremarkable. IMPRESSION: 1. Normal thoracic spinal cord. 2. Mild degenerative changes, without remarkable central canal or foraminal stenosis. Signed: Gustabo Sheppard MD Report Verified Date/Time: 04/29/2017 11:27:33 Reading Location: [address] Neuro Reading Room spine lumbar without IV contrast (03/15/2017 1:57 PM) Specimen Performing Laboratory [facility] Narrative FINAL REPORT MRI of the lumbar spine Comparison:None Reason for exam: Lumbar stenosis with neurogenic claudication Discussion: Sagittal and axial multisequence MR imaging of the lumbar spine was provided Vertebral body heights and disc spaces are well-maintained. There is very minimal dorsal indentation into the canal at the L4/5 level from hypertrophic degenerative facet changes but there is no significant canal stenosis at this or any other level. A 1 cm synovial cyst projects anteriorly and laterally from the anterior aspect of the right-sided L5/S1 facet, approaching the foraminal component of the right L5 nerve. Remaining foramina are patent. Distal cord and conus are unremarkable with the conus tip at L1. Unremarkable bone marrow signal. There is a small right renal cyst. Visible soft tissues otherwise unremarkable. Impressions: 1. Mild chronic spine changes as discussed. No central canal stenosis at any level. 2. Right-sided synovial cyst extending into the right L5/S1 foramen. Correlate with specific right L5 radiculopathy although I do not see convincing nerve root compromise. Signed: Christine Elder MD Report Verified Date/Time:03/15/2017 14:30:54 Reading Location: [facility] [id number] Neuro Reading Room Procedure Note Interface, External Ris In - 03/15/2017 2:33 PM CDT FINAL REPORT MRI of the lumbar spine Comparison: None Reason for exam: Lumbar stenosis with neurogenic claudication Discussion: Sagittal and axial multisequence MR imaging of the lumbar spine was provided Vertebral body heights and disc spaces are well-maintained. There is very minimal dorsal indentation into the canal at the L4/5 level from hypertrophic degenerative facet changes but there is no significant canal stenosis at this or any other level. A 1 cm synovial cyst projects anteriorly and laterally from the anterior aspect of the right-sided L5/S1 facet, approaching the foraminal component of the right L5 nerve. Remaining foramina are patent. Distal cord and conus are unremarkable with the conus tip at L1. Unremarkable bone marrow signal. There is a small right renal cyst. Visible soft tissues otherwise unremarkable. Impressions: 1. Mild chronic spine changes as discussed. No central canal stenosis at any level. 2. Right-sided synovial cyst extending into the right L5/S1 foramen. Correlate with specific right L5 radiculopathy although I do not see convincing nerve root compromise. Signed: Christine Elder MD Report Verified Date/Time: 03/15/2017 14:30:54 Reading Location: [address] Neuro Reading Room spine cervical without IV contrast (03/15/2017 1:57 PM) Specimen Performing Laboratory [facility] Narrative FINAL REPORT MRI of the cervical spine Comparison:None Reason for exam: Cervical myelopathy Discussion: Sagittal and axial multisequence MR imaging of the cervical spine was provided Conspicuity of the posterior longitudinal ligament is noted indenting the thecal sac at multiple levels with relative canal narrowing but no significant stenosis. There is however chronic ventral cord indentation from C2-3 to C5. No visible intramedullary signal alteration. It should be noted that the study is degraded by motion and subtle myelopathy may not be detectable. Mild chronic disc and endplate changes are noted. Mild chronic foraminal stenosis bilateral C4/5. Remaining foramina are patent. Normal bone marrow signal. Paraspinal soft tissues unremarkable. Impressions: Mild chronic spine changes as discussed with no convincing evidence of myelopathy. There is however mild chronic ventral cord deformity likely reflecting the presence of a conspicuous posterior longitudinal ligament. Signed: Christine Elder MD Report Verified Date/Time:03/15/2017 14:27:17 Reading Location: [address] Neuro Reading Room Procedure Note Interface, External Ris In - 03/15/2017 2:29 PM CDT FINAL REPORT MRI of the cervical spine Comparison: None Reason for exam: Cervical myelopathy Discussion: Sagittal and axial multisequence MR imaging of the cervical spine was provided Conspicuity of the posterior longitudinal ligament is noted indenting the thecal sac at multiple levels with relative canal narrowing but no significant stenosis. There is however chronic ventral cord indentation from C2-3 to C5. No visible intramedullary signal alteration. It should be noted that the study is degraded by motion and subtle myelopathy may not be detectable. Mild chronic disc and endplate changes are noted. Mild chronic foraminal stenosis bilateral C4/5. Remaining foramina are patent. Normal bone marrow signal. Paraspinal soft tissues unremarkable. Impressions: Mild chronic spine changes as discussed with no convincing evidence of myelopathy. There is however mild chronic ventral cord deformity likely reflecting the presence of a conspicuous posterior longitudinal ligament. Signed: Christine Elder MD Report Verified Date/Time: 03/15/2017 14:27:17 Reading Location: [address] Neuro Reading Room PHERAL VASCULAR REPORT - SCAN (02/28/2017 7:20 AM)Arterial doppler legs bilateral (02/27/2017 5:02 PM) Component Value Ref Range Ejection Fraction Specimen Performing Laboratory [facility] MKCKESSON CPACS Impressions Right Impression 1. The common femoral, profunda femoral, superficial femoral and popliteal arteries are patent with triphasic/biphasic Doppler waveforms and calcified arterial rollins. 2. There are monophasic Doppler waveforms in the posterior tibial, peroneal and anterior tibial arteries with moderate/severe calcification. 3. The PT pressure is 265 mmHg with an BETH of non compressible and the DP pressure is 270 mmHg with an BETH of non compressible. 4. The great toe pressure is 106 mmHg with an abnormal TBI of 0.57. 5. The digits have adequate flow by PPG waveforms. Left Impression 1. The common femoral, profunda femoral and superficial femoral arteries are patent with biphasic Doppler waveforms and calcified arterial rollins. 2. The popliteal artery is patent with decreased monophasic Doppler waveforms and calcified arterial rollins. 3. There is decreased monophasic Doppler waveforms in the anterior tibial artery with calcification and severe flow reduction. 4. There is no demonstrable/visualized flow in the posterior tibial and peroneal arteries. 5. The PT pressure is 185 mmHg with an BETH 1.00 of and the DP pressure is 194 mmHg with an BETH of 1.05 , which maybe falsely elevated. 6. TBI/toe pressure cannot be obtaind due to no demonstrable flow in the great toe. 7. There is no demonstrable flow in the digits by PPG waveforms. Conclusions Summary Arterial pressures and Doppler waveforms were performed bilaterally. The exam was technically difficult however adequate Doppler waveforms were obtained. On the right, the common femoral, profunda femoral, superficial femoral and popliteal arteries were patent with triphasic/biphasic Doppler waveforms and calcified arterial rollins. There were monophasic Doppler waveforms in the posterior tibial, peroneal and anterior tibial arteries with moderate/severe calcification. BETH's were non compressible. TBI was abnormal. There was adequate flow to the digits by PPG waveforms. On the left, the common femoral, profunda femoral and superficial femoral arteries were patent with biphasic Doppler waveforms and calcified arterial rollins. The popliteal artery was patent with decreased monophasic Doppler waveforms and calcified arterial rollins. There was decreased monophasic Doppler waveforms in the anterior tibial artery with calcification and severe flow reduction. There was no demonstrable/visualized flow in the posterior tibial and peroneal arteries. BETH's was within normal limits which maybe falsely elevated. TBI cannot be assessed due to no demonstrable flow by PPG waveforms. There was no demonstrable flow in the digits by PPG waveforms. Signature Velocities are measured in cm/s ; Diameters are measured in cm LE Duplex Measurements Right Left + + + + + + + + + + !Location ! !PSV !EDV !Waveform! !PSV !EDV !Waveform! + + + + + + + + + + !Prox PFA ! !98.6!! ! !62.3!13! ! + + + + + + + + + + !Prox SFA ! !94.6!18.9! ! !70.9!12.1! ! + + + + + + + + + + !Mid SFA ! !116 !18.9! ! !68.1!9.21! ! + + + + + + + + + + !Dist SFA ! !120 !16.2! ! !41.6!12.1! ! + + + + + + + + + + !Prox Popliteal ! !144 !24.6! ! !41.6!12.1! ! + + + + + + + + + + !Dist Popliteal ! !86.5!20.3! ! !41.6!15.1! ! + + + + + + + + + + !Mid ELECTRONIC [employer] SYSTEM OPERATOR ! !25.3!! ! !32.5!15.9! ! + + + + + + + + + + !Prox JESSICA ! !63.8!20.5! ! !40.3!13.7! ! + + + + + + + + + + !Mid JESSICA ! !71.3!! ! !38.6!15.9! ! + + + + + + + + + + !Dist JESSICA ! !64.8!18.4! ! + + + + + + !Prox Peroneal ! !62.7!! ! + + + + + + !Mid Peroneal ! !141 !! ! + + + + + + Narrative [facility] - Lower Extremity Arterial Duplex Demographics Patient NameDORIAN,Date of Study 2014 HUSEYIN Abernathy JR. Age 72 Visit [id number] Gender Male Date of 01/[birth year] Number Referring Elkin Ely Cramer Room Number Physician Commercial Carpet Installer Rosi AntonioJ. Jan Miles RN, RVTPhysicicruzito [place], [facility] Procedure Type of Study: Extremities Arteries: Lower Extremities Arterial Duplex, ARTERIAL DOPPLER LEGS, BILATERAL. Indications for Study:Claudication. Patient Status:Routine. Study Location:Vascular Lab. Technical Quality:Adequate visualization. Risk Factors History of Disease + +----+ + !Diagnosis!Date!Comments ! + +----+ + !History/Risk Factors:!!HTN,HLD,CAD,Aortic stenosis,S/P AVR 04/23/2014 ! + +----+ + Procedure Note Interface, External Ris In - 02/28/2017 4:50 AM CDT [facility] - Lower Extremity Arterial Duplex Demographics Patient Name DORIAN, Date of Study 02/27/2017 HUSEYIN Abernathy JR. Age 72 Visit Number [id number] Gender Male Date of 1945 Number Referring Elkin Cramer Room Number Physician [employer] Installer Rosi Shaikh Interpreting Marlen Miles RN, RVT Physician MD, RPVI Procedure Type of Study: Extremities Arteries: Lower Extremities Arterial Duplex, ARTERIAL DOPPLER LEGS, BILATERAL. Indications for Study:Claudication. Patient Status:Routine. Study Location:Vascular Lab. Technical Quality:Adequate visualization. Risk Factors History of Disease + +----+ + !Diagnosis !Date!Comments ! + +----+ + !History/Risk Factors:! !HTN,HLD,CAD,Aortic stenosis,S/P AVR 04/23/2014 ! + +----+ + Impressions Right Impression 1. The common femoral, profunda femoral, superficial femoral and popliteal arteries are patent with triphasic/biphasic Doppler waveforms and calcified arterial rollins. 2. There are monophasic Doppler waveforms in the posterior tibial, peroneal and anterior tibial arteries with moderate/severe calcification. 3. The PT pressure is 265 mmHg with an BETH of non compressible and the DP pressure is 270 mmHg with an BETH of non compressible. 4. The great toe pressure is 106 mmHg with an abnormal TBI of 0.57. 5. The digits have adequate flow by PPG waveforms. Left Impression 1. The common femoral, profunda femoral and superficial femoral arteries are patent with biphasic Doppler waveforms and calcified arterial rollins. 2. The popliteal artery is patent with decreased monophasic Doppler waveforms and calcified arterial rollins. 3. There is decreased monophasic Doppler waveforms in the anterior tibial artery with calcification and severe flow reduction. 4. There is no demonstrable/visualized flow in the posterior tibial and peroneal arteries. 5. The PT pressure is 185 mmHg with an BETH 1.00 of and the DP pressure is 194 mmHg with an BETH of 1.05 , which maybe falsely elevated. 6. TBI/toe pressure cannot be obtaind due to no demonstrable flow in the great toe. 7. There is no demonstrable flow in the digits by PPG waveforms. Conclusions Summary Arterial pressures and Doppler waveforms were performed bilaterally. The exam was technically difficult however adequate Doppler waveforms were obtained. On the right, the common femoral, profunda femoral, superficial femoral and popliteal arteries were patent with triphasic/biphasic Doppler waveforms and calcified arterial rollins. There were monophasic Doppler waveforms in the posterior tibial, peroneal and anterior tibial arteries with moderate/severe calcification. BETH's were non compressible. TBI was abnormal. There was adequate flow to the digits by PPG waveforms. On the left, the common femoral, profunda femoral and superficial femoral arteries were patent with biphasic Doppler waveforms and calcified arterial rollins. The popliteal artery was patent with decreased monophasic Doppler waveforms and calcified arterial rollins. There was decreased monophasic Doppler waveforms in the anterior tibial artery with calcification and severe flow reduction. There was no demonstrable/visualized flow in the posterior tibial and peroneal arteries. BETH's was within normal limits which maybe falsely elevated. TBI cannot be assessed due to no demonstrable flow by PPG waveforms. There was no demonstrable flow in the digits by PPG waveforms. Signature Velocities are measured in cm/s ; Diameters are measured in cm LE Duplex Measurements Right Left + + + ------+ + + + +-------- + + !Location ! !PSV !EDV !Waveform ! !PSV !EDV !Waveform ! + + + ------+ + + + +-------- + + !Prox PFA ! !98.6 ! ! ! !62.3 !13 ! ! + + + ------+ + + + +-------- + + !Prox SFA ! !94.6 !18.9 ! ! !70.9 !12.1 ! ! + + + ------+ + + + +-------- + + !Mid SFA ! !116 !18.9 ! ! !68.1 !9.21 ! ! + + + ------+ + + + +-------- + + !Dist SFA ! !120 !16.2 ! ! !41.6 !12.1 ! ! + + + ------+ + + + +-------- + + !Prox Popliteal ! !144 !24.6 ! ! !41.6 !12.1 ! ! + + + ------+ + + + +-------- + + !Dist Popliteal ! !86.5 !20.3 ! ! !41.6 !15.1 ! ! + + + ------+ + + + +-------- + + !Mid [employer] OPERATOR ! !25.3 ! ! ! !32.5 !15.9 ! ! + + + ------+ + + + +-------- + + !Prox JESSICA ! !63.8 !20.5 ! ! !40.3 !13.7 ! ! + + + ------+ + + + +-------- + + !Mid JESSICA ! !71.3 ! ! ! !38.6 !15.9 ! ! + + + ------+ + + + +-------- + + !Dist JESSICA ! !64.8 !18.4 ! ! + + + ------+ + + !Prox Peroneal ! !62.7 ! ! ! + + + ------+ + + !Mid Peroneal ! !141 ! ! ! + + + ------+ + + after 12/14/2016
--- OUTSIDE RECORDS SUMMARY | 2017-12-15 22:04 | XMS REPORT ---
:1945 Author Organization [employer] Care Team Providers Name Role Phone Alonzo Elias Provider Role Unavailable Allergies No Known Allergies Problems Problem Type Condition Code Onset Dates Condition Status Problem Hypertrophy of nasal turbinates J34.3 Active Problem Allergic rhinitis, seasonal J30.2 Active Problem Deviated nasal septum J34.2 Active Problem Dysphagia, oropharyngeal phase R13.12 Active Problem Nasal Airway Obstruction R0 Active Problem GERD K21.9 Active Problem Cough R05 Active Problem Hearing loss - Sensorineural H90.5 Active Asymmetrical Problem Nasal congestion R09.81 Active Problem Postnasal drip R09.82 Active Problem Acute bronchitis due to Mycoplasma J20.0 Active pneumoniae Problem GERD K21.9 Active Medications Medication Code System Code Instructions Start End Date Status Dosage Date Carafate [facility] [id number] 1 GM Orally 3 November 18, December 18, Active 1 tablet times a day 2017 2017 before meals Results No Known Results Summary Purpose [employer] Submission
--- OUTSIDE RECORDS SUMMARY | 2017-12-15 22:04 | XMS REPORT ---
:1945 [facility] Providers Name Role Phone Alonzo Elias Provider Role Unavailable Allergies, Adverse Reactions, Alerts Substance Reaction Event Type Flu vaccine Info Not Available Drug Allergy Metoprolol Info Not Available Drug Allergy Aspirin Info Not Available Drug Allergy Problems Problem Type Condition Code Onset Dates Condition Status Problem Hypertrophy of nasal turbinates J34.3 Active Problem Allergic rhinitis, seasonal J30.2 Active Problem Deviated nasal septum J34.2 Active Problem GERD K21.9 Active Problem Cough R05 Active Problem Hearing loss - Sensorineural H90.5 Active Asymmetrical Problem Nasal congestion R09.81 Active Problem Postnasal drip R09.82 Active Problem Acute bronchitis due to Mycoplasma J20.0 Active pneumoniae Problem GERD K21.9 Active Assessment Hearing loss - Sensorineural H90.5 Active Asymmetrical Assessment Deviated nasal septum J34.2 Active Assessment Epistaxis R04.0 Active Assessment Nasal congestion R09.81 Active Problem Dysphagia, oropharyngeal phase R13.12 Active Assessment Hearing loss, Sensorineural - H90.3 Active Bilateral Problem Nasal Airway Obstruction R0 Active Medications Medication Code Code Instructions Start End Status Dosage System Date Date Insulin Glargine [facility] [address]-25 Active not defined Coenzyme Q-10 [facility] [address]-54 Active not defined Astepro 0.15% [facility] 23555151834 0.15% SPRAY Oct 08, Active 2 sprays Nasally Once a 2017 in each day at bedtime nostril Flonase ND 03251800146 50 MCG/ACT Oct 08, Active 2 sprays Nasally Once a 2017 in each day at bedtime nostril Zofran [facility] 41861999509 4 MG Orally Jul 09, Active 1 tablet Every 6 hours 2016 Ranitidine HCl [facility] 88242567914 150 MG Orally Oct 01, Active 1 tablet Twice a day 2017 Azelastine & [facility] [address]-18 Active not Fluticasone defined Flonase [facility] 04360435110 50 MCG/ACT Sep 27, Active 2 sprays Nasally Once a 2016 in each day nostril Multivitamins [facility] 36696-[address]81 Active not defined Plavix [facility] [address]-03 Active not defined Cholecalciferol [facility] 0 Active not defined Carafate [facility] 24316035643 1 GM Orally Oct 01October Active 1 tablet before 2017, before breakfast, 2017 meals before dinner Albuterol Sulfate [facility] [address]-97 Active not HFA defined Penicillin V [facility] [address]-43 Active not Potassium defined NIFEdipine [facility] [address]-84 Active not defined Dymista [facility] 62777044451 137-50 MCG/ACT Sep 27, Active 1 spray Nasally Once a 2016 in each day nostril Docusate Sodium [facility] [address]-31 Active not defined Tamsulosin HCl [facility] [address]-97 Active not defined Furosemide [facility] [address]-86 Active not defined Clopidogrel [facility] [address]-60 Active not Bisulfate defined Carafate [facility] 14511706612 1 GM Orally as Aug 08, Active 1 tablet directed 2016 30 minutes before meal and at bedtime Insulin Aspart [facility] [address]-86 Active not defined Ipratropium [facility] 58668162984 0.03 % Nasally October Active 2 sprays [place] Three times a 23, in each day 2017 nostril as needed Clonidine HCl [facility] [address]-90 Active not defined Results Name Result Date Reference Range Unit Abnormality Flag CT Sinus with [place] Summary Purpose [employer]ClinicalWorks Submission
--- OUTSIDE RECORDS SUMMARY | 2017-12-15 22:04 | XMS REPORT ---
:1945 [facility] Address [address] [place] [address] Care Team Providers Name Role Phone ELY LIMON Unavailable Unavailable DEBI HOLMAN Unavailable Unavailable MOY GASTON Unavailable Unavailable Problems This patient has no known problems. Allergies, Adverse Reactions, Alerts This patient has no known allergies or adverse reactions. Medications This patient has no known medications. Results Test Description Test Time Test Comments Text Results Atomic Results Result Comments TSH 2017-10-01 15:39:00 Test Item Value Reference Range Comments THYROID STIMULATING HORMONE (BEAKER) (test wzgp=016) 3.01 uIU/mL 0.35-4.94 [id number] 11:41:00 Test Item Value Reference Range Comments PROSTATE SPECIFIC ANTIGEN (BEAKER) (test 12.5 ng/mL 0.0-4.0 nnlq=337) BASIC METABOLIC [id number] 11:33:00 Test Item Value Reference Range Comments SODIUM (BEAKER) (test 136 meq/L 136-145 qbbk=346) POTASSIUM (BEAKER) (test 3.7 meq/L 3.5-5.1 woqw=500) CHLORIDE (BEAKER) (test 101 meq/L 98-107 bnpv=618) CO2 (BEAKER) (test 23 meq/L 22-29 jwwx=835) BLOOD UREA NITROGEN 55 mg/dL 7-21 (BEAKER) (test txih=030) CREATININE (BEAKER) (test 3.01 mg/dL 0.57-1.25 nbqu=549) GLUCOSE RANDOM (BEAKER) 150 mg/dL 70-105 (test hqjc=046) CALCIUM (BEAKER) (test 10.1 mg/dL 8.4-10.2 zndw=303) EGFR (BEAKER) (test 21 mL/min/1.73 sq m ESTIMATED GFR IS NOT hlsw=1773) ACCURATE CREATININE CLEARANCE IN PREDICTING GLOMERULAR FILTRATION RATE. ESTIMATED GFR IS NOT APPLICABLE FOR DIALYSIS PATIENTS. LIPID [id number] 10:41:00 Test Item Value Reference Range Comments TRIGLYCERIDES (BEAKER) (test brjt=891) 184 mg/dL CHOLESTEROL (BEAKER) (test eewe=408) 265 mg/dL HDL CHOLESTEROL (BEAKER) (test vdtc=098) 29 mg/dL LDL CHOLESTEROL CALCULATED (BEAKER) (test 199 mg/dL kfvs=216) Triglyceride Reference Range: Low Risk <150 Borderline 150- 199 High Risk 200-499 Very High Risk >=500Cholesterol Reference Range: Low Risk <200 Borderline 200-239 High Risk > 240HDL Cholesterol Reference Range: Low Risk >=60 High Risk <40LDL Cholesterol Reference Range: Optimal <100 Near Optimal 100-129 Borderline 130-159 High 160-189 Very High >=190HEPATIC FUNCTION [id number] 10:41:00 Test Item Value Reference Range Comments TOTAL PROTEIN (BEAKER) (test gsyd=646) 7.5 gm/dL 6.0-8.3 ALBUMIN (BEAKER) (test ucaf=8135) 4.1 g/dL 3.5-5.0 BILIRUBIN TOTAL (BEAKER) (test henb=663) 0.5 mg/dL 0.2-1.2 BILIRUBIN DIRECT (BEAKER) (test duev=475) 0.1 mg/dL 0.1-0.5 ALKALINE PHOSPHATASE (BEAKER) (test xsvp=502) 68 U/L 40-150 AST (SGOT) (BEAKER) (test sqrl=203) 16 U/L 5-34 ALT (SGPT) (BEAKER) (test fvkm=046) 13 U/L 6-55 B-TYPE NATRIURETIC FACTOR (BNP)2017-10-01 10:40:00 Test Item Value Reference Range Comments B-TYPE NATRIURETIC PEPTIDE (BEAKER) (test 763 pg/mL 0-100 aodr=692) CBC W/PLT COUNT & AUTO [id number] 09:55:00 Test Item Value Reference Range Comments WHITE BLOOD CELL COUNT (BEAKER) (test wryj=892) 6.2 K/ L 3.5-10.5 RED BLOOD CELL COUNT (BEAKER) (test lycf=356) 3.30 M/ L 4.63-6.08 HEMOGLOBIN (BEAKER) (test udrg=873) 10.1 GM/DL 13.7-17.5 HEMATOCRIT (BEAKER) (test udkh=914) 29.4 % 40.1-51.0 MEAN CORPUSCULAR VOLUME (BEAKER) (test fbxu=829) 89.1 fL 79.0-92.2 MEAN CORPUSCULAR HEMOGLOBIN (BEAKER) (test 30.6 pg 25.7-32.2 ghhl=025) MEAN CORPUSCULAR HEMOGLOBIN CONC (BEAKER) (test 34.4 GM/DL 32.3-36.5 spet=766) RED CELL DISTRIBUTION WIDTH (BEAKER) (test 12.7 % 11.6-14.4 xbch=420) PLATELET COUNT (BEAKER) (test dyro=041) 263 K/CU MM 150-450 MEAN PLATELET VOLUME (BEAKER) (test ovvx=098) 10.7 fL 9.4-12.4 NUCLEATED RED BLOOD CELLS (BEAKER) (test 0 /100 WBC 0-0 ktrw=415) NEUTROPHILS RELATIVE PERCENT (BEAKER) (test 53 % vjof=653) LYMPHOCYTES RELATIVE PERCENT (BEAKER) (test 35 % aajq=187) MONOCYTES RELATIVE PERCENT (BEAKER) (test 10 % wida=525) EOSINOPHILS RELATIVE PERCENT (BEAKER) (test 2 % pqis=449) BASOPHILS RELATIVE PERCENT (BEAKER) (test 0 % ecve=387) NEUTROPHILS ABSOLUTE COUNT (BEAKER) (test 3.28 K/ L 1.78-5.38 cpls=900) LYMPHOCYTES ABSOLUTE COUNT (BEAKER) (test 2.18 K/ L 1.32-3.57 cwkg=705) MONOCYTES ABSOLUTE COUNT (BEAKER) (test 0.59 K/ L 0.30-0.82 tsll=301) EOSINOPHILS ABSOLUTE COUNT (BEAKER) (test 0.12 K/ L 0.04-0.54 qrtm=173) BASOPHILS ABSOLUTE COUNT (BEAKER) (test 0.02 K/ L 0.01-0.08 pwlq=535) IMMATURE GRANULOCYTES-RELATIVE PERCENT (BEAKER) 1 % 0-1 (test xikl=1597) [id number] 13:13:00 Test Item Value Reference Range Comments PROSTATE SPECIFIC ANTIGEN (BEAKER) (test 13.8 ng/mL 0.0-4.0 bsod=285) BASIC METABOLIC [id number] 10:44:00 Test Item Value Reference Range Comments SODIUM (BEAKER) (test 141 meq/L 136-145 amvr=634) POTASSIUM (BEAKER) (test 4.2 meq/L 3.5-5.1 esfl=306) CHLORIDE (BEAKER) (test 107 meq/L 98-107 lduj=430) CO2 (BEAKER) (test 23 meq/L 22-29 xkbp=007) BLOOD UREA NITROGEN 46 mg/dL 7-21 (BEAKER) (test gshv=783) CREATININE (BEAKER) (test 2.24 mg/dL 0.57-1.25 qltq=679) GLUCOSE RANDOM (BEAKER) 102 mg/dL 70-105 (test sdve=247) CALCIUM (BEAKER) (test 10.1 mg/dL 8.4-10.2 jzdf=274) EGFR (BEAKER) (test 29 mL/min/1.73 sq m ESTIMATED GFR IS NOT ijrk=2656) ACCURATE CREATININE CLEARANCE IN PREDICTING GLOMERULAR FILTRATION RATE. ESTIMATED GFR IS NOT APPLICABLE FOR DIALYSIS PATIENTS. HEPATIC FUNCTION [id number] 10:35:00 Test Item Value Reference Range Comments TOTAL PROTEIN (BEAKER) (test yrue=813) 7.4 gm/dL 6.0-8.3 ALBUMIN (BEAKER) (test xlab=6375) 4.0 g/dL 3.5-5.0 BILIRUBIN TOTAL (BEAKER) (test pmol=397) 0.3 mg/dL 0.2-1.2 BILIRUBIN DIRECT (BEAKER) (test zedy=328) 0.1 mg/dL 0.1-0.5 ALKALINE PHOSPHATASE (BEAKER) (test xdow=548) 73 U/L 40-150 AST (SGOT) (BEAKER) (test hpue=640) 14 U/L 5-34 ALT (SGPT) (BEAKER) (test bhpr=453) 15 U/L 6-55 [id number] 10:18:00 Test Item Value Reference Range Comments THYROID STIMULATING HORMONE (BEAKER) (test 1.72 uIU/mL 0.35-4.94 vhni=379) B-TYPE NATRIURETIC FACTOR (BNP)2017-08-22 10:06:00 Test Item Value Reference Range Comments B-TYPE NATRIURETIC PEPTIDE (BEAKER) (test 425 pg/mL 0-100 utyy=751) LIPID [id number] 10:01:00 Test Item Value Reference Range Comments TRIGLYCERIDES (BEAKER) (test wega=237) 207 mg/dL CHOLESTEROL (BEAKER) (test nosm=613) 259 mg/dL HDL CHOLESTEROL (BEAKER) (test jczj=896) 34 mg/dL LDL CHOLESTEROL CALCULATED (BEAKER) (test 184 mg/dL ltpw=155) Triglyceride Reference Range: Low Risk <150 Borderline 150- 199 High Risk 200-499 Very High Risk >=500Cholesterol Reference Range: Low Risk <200 Borderline 200-239 High Risk > 240HDL Cholesterol Reference Range: Low Risk >=60 High Risk <40LDL Cholesterol Reference Range: Optimal <100 Near Optimal 100-129 Borderline 130-159 High 160-189 Very High >=190CBC W/PLT COUNT & AUTO [id number] 09:32:00 Test Item Value Reference Range Comments WHITE BLOOD CELL COUNT (BEAKER) (test ctkk=732) 7.4 K/ L 3.5-10.5 RED BLOOD CELL COUNT (BEAKER) (test buvm=625) 3.58 M/ L 4.63-6.08 HEMOGLOBIN (BEAKER) (test nxys=051) 10.7 GM/DL 13.7-17.5 HEMATOCRIT (BEAKER) (test upww=793) 32.6 % 40.1-51.0 MEAN CORPUSCULAR VOLUME (BEAKER) (test sbit=324) 91.1 fL 79.0-92.2 MEAN CORPUSCULAR HEMOGLOBIN (BEAKER) (test 29.9 pg 25.7-32.2 xjcm=991) MEAN CORPUSCULAR HEMOGLOBIN CONC (BEAKER) (test 32.8 GM/DL 32.3-36.5 djru=725) RED CELL DISTRIBUTION WIDTH (BEAKER) (test 12.8 % 11.6-14.4 mfcd=607) PLATELET COUNT (BEAKER) (test sbjt=982) 326 K/CU MM 150-450 MEAN PLATELET VOLUME (BEAKER) (test nmpi=504) 10.7 fL 9.4-12.4 NUCLEATED RED BLOOD CELLS (BEAKER) (test 0 /100 WBC 0-0 lgpx=878) NEUTROPHILS RELATIVE PERCENT (BEAKER) (test 57 % upds=942) LYMPHOCYTES RELATIVE PERCENT (BEAKER) (test 33 % unaz=492) MONOCYTES RELATIVE PERCENT (BEAKER) (test 8 % vibk=246) EOSINOPHILS RELATIVE PERCENT (BEAKER) (test 1 % wptr=776) BASOPHILS RELATIVE PERCENT (BEAKER) (test 0 % zqpc=067) NEUTROPHILS ABSOLUTE COUNT (BEAKER) (test 4.25 K/ L 1.78-5.38 yxzw=376) LYMPHOCYTES ABSOLUTE COUNT (BEAKER) (test 2.44 K/ L 1.32-3.57 ffcj=920) MONOCYTES ABSOLUTE COUNT (BEAKER) (test 0.59 K/ L 0.30-0.82 cisz=776) EOSINOPHILS ABSOLUTE COUNT (BEAKER) (test 0.07 K/ L 0.04-0.54 omac=983) BASOPHILS ABSOLUTE COUNT (BEAKER) (test 0.02 K/ L 0.01-0.08 mtui=002) IMMATURE GRANULOCYTES-RELATIVE PERCENT (BEAKER) 1 % 0-1 (test mxlu=8365) MISCELLANEOUS LAB [id number] 14:28:00 Test Item Value Reference Range Comments SCAN RESULT (test dgou=[id number]) BLOOD [id number] 23:00:00 Test Item Value Reference Range Comments CULTURE (BEAKER) (test jwyq=8595) No growth in 5 days POCT-GLUCOSE [id number] 12:34:00 Test Item Value Reference Range Comments POC-GLUCOSE METER (BEAKER) 206 mg/dL 70-110 TESTED AT [address] (test hpvy=7003) [facility] [address] B-TYPE NATRIURETIC FACTOR (BNP)2017-08-15 10:04:00 Test Item Value Reference Range Comments B-TYPE NATRIURETIC PEPTIDE (BEAKER) (test 582 pg/mL 0-100 ryqz=671) BASIC METABOLIC [id number] 07:39:00 Test Item Value Reference Range Comments SODIUM (BEAKER) (test 136 meq/L 136-145 swmp=270) POTASSIUM (BEAKER) (test 3.7 meq/L 3.5-5.1 hkrm=543) CHLORIDE (BEAKER) (test 100 meq/L 98-107 tnvp=864) CO2 (BEAKER) (test 25 meq/L 22-29 ybir=982) BLOOD UREA NITROGEN 50 mg/dL 7-21 (BEAKER) (test nisr=135) CREATININE (BEAKER) (test 2.49 mg/dL 0.57-1.25 kbte=489) GLUCOSE RANDOM (BEAKER) 147 mg/dL 70-105 (test drkp=998) CALCIUM (BEAKER) (test 9.7 mg/dL 8.4-10.2 oues=746) EGFR (BEAKER) (test 26 mL/min/1.73 sq m ESTIMATED GFR IS NOT sfrz=5406) ACCURATE CREATININE CLEARANCE IN PREDICTING GLOMERULAR FILTRATION RATE. ESTIMATED GFR IS NOT APPLICABLE FOR DIALYSIS PATIENTS. POCT-GLUCOSE [id number] 07:27:00 Test Item Value Reference Range Comments POC-GLUCOSE METER (BEAKER) 160 mg/dL 70-110 TESTED AT [facility] [address] (test fctt=6594) [facility] [address] [id number] 07:24:00 Test Item Value Reference Range Comments PARTIAL THROMBOPLASTIN TIME (BEAKER) (test 112.0 seconds 22.5-36.0 krjo=956) [id number] 07:17:00 Test Item Value Reference Range Comments MAGNESIUM (BEAKER) (test rdss=831) 1.9 mg/dL 1.6-2.6 CBC W/PLT COUNT & AUTO [id number] 06:20:00 Test Item Value Reference Range Comments WHITE BLOOD CELL COUNT (BEAKER) (test nrsq=960) 7.0 K/ L 3.5-10.5 RED BLOOD CELL COUNT (BEAKER) (test dggu=790) 2.95 M/ L 4.63-6.08 HEMOGLOBIN (BEAKER) (test tyqx=065) 8.8 GM/DL 13.7-17.5 HEMATOCRIT (BEAKER) (test mnke=667) 26.3 % 40.1-51.0 MEAN CORPUSCULAR VOLUME (BEAKER) (test hqxf=152) 89.2 fL 79.0-92.2 MEAN CORPUSCULAR HEMOGLOBIN (BEAKER) (test 29.8 pg 25.7-32.2 uhyq=659) MEAN CORPUSCULAR HEMOGLOBIN CONC (BEAKER) (test 33.5 GM/DL 32.3-36.5 dxvu=401) RED CELL DISTRIBUTION WIDTH (BEAKER) (test 12.8 % 11.6-14.4 wrjh=763) PLATELET COUNT (BEAKER) (test gntp=703) 235 K/CU MM 150-450 MEAN PLATELET VOLUME (BEAKER) (test dwgf=164) 11.4 fL 9.4-12.4 NUCLEATED RED BLOOD CELLS (BEAKER) (test 0 /100 WBC 0-0 fqyf=633) NEUTROPHILS RELATIVE PERCENT (BEAKER) (test 56 % xqpn=154) LYMPHOCYTES RELATIVE PERCENT (BEAKER) (test 33 % rgkr=893) MONOCYTES RELATIVE PERCENT (BEAKER) (test 10 % dfjn=156) EOSINOPHILS RELATIVE PERCENT (BEAKER) (test 1 % ktkz=992) BASOPHILS RELATIVE PERCENT (BEAKER) (test 0 % aeqd=934) NEUTROPHILS ABSOLUTE COUNT (BEAKER) (test 3.90 K/ L 1.78-5.38 cvql=040) LYMPHOCYTES ABSOLUTE COUNT (BEAKER) (test 2.32 K/ L 1.32-3.57 byrl=725) MONOCYTES ABSOLUTE COUNT (BEAKER) (test 0.68 K/ L 0.30-0.82 zgba=423) EOSINOPHILS ABSOLUTE COUNT (BEAKER) (test 0.07 K/ L 0.04-0.54 wcbj=352) BASOPHILS ABSOLUTE COUNT (BEAKER) (test 0.01 K/ L 0.01-0.08 nlzn=077) IMMATURE GRANULOCYTES-RELATIVE PERCENT (BEAKER) 1 % 0-1 (test cprm=9135) POCT-GLUCOSE [id number] 21:13:00 Test Item Value Reference Range Comments POC-GLUCOSE METER (BEAKER) 245 mg/dL 70-110 TESTED AT [address] (test oudo=9560) [place] [address] POCT-GLUCOSE [id number] 16:20:00 Test Item Value Reference Range Comments POC-GLUCOSE METER (BEAKER) 380 mg/dL 70-110 TESTED AT [address] (test heum=2108) [place] [address] POCT-GLUCOSE [id number] 11:50:00 Test Item Value Reference Range Comments POC-GLUCOSE METER (BEAKER) 257 mg/dL 70-110 TESTED AT [address] (test simk=6136) [place] [address] BASIC METABOLIC [id number] 07:49:00 Test Item Value Reference Range Comments SODIUM (BEAKER) (test 138 meq/L 136-145 cgfc=713) POTASSIUM (BEAKER) (test 4.2 meq/L 3.5-5.1 byya=844) CHLORIDE (BEAKER) (test 101 meq/L 98-107 zkrd=792) CO2 (BEAKER) (test 24 meq/L 22-29 avdq=371) BLOOD UREA NITROGEN 53 mg/dL 7-21 (BEAKER) (test yzfq=323) CREATININE (BEAKER) (test 2.70 mg/dL 0.57-1.25 lpzd=470) GLUCOSE RANDOM (BEAKER) 198 mg/dL 70-105 (test vzmc=263) CALCIUM (BEAKER) (test 10.1 mg/dL 8.4-10.2 keeu=649) EGFR (BEAKER) (test 23 mL/min/1.73 sq m ESTIMATED GFR IS NOT phuz=5014) ACCURATE CREATININE CLEARANCE IN PREDICTING GLOMERULAR FILTRATION RATE. ESTIMATED GFR IS NOT APPLICABLE FOR DIALYSIS PATIENTS. [id number] 07:48:00 Test Item Value Reference Range Comments MAGNESIUM (BEAKER) (test udbv=034) 2.0 mg/dL 1.6-2.6 POCT-GLUCOSE [id number] 07:43:00 Test Item Value Reference Range Comments POC-GLUCOSE METER (BEAKER) 219 mg/dL 70-110 TESTED AT [facility] [address] [place] [address] (test jnnd=7540) [facility] [address] B-TYPE NATRIURETIC FACTOR (BNP)2017-08-14 07:25:00 Test Item Value Reference Range Comments B-TYPE NATRIURETIC PEPTIDE (BEAKER) (test 331 pg/mL 0-100 okjw=798) CBC W/PLT COUNT & AUTO [id number] 07:17:00 Test Item Value Reference Range Comments WHITE BLOOD CELL COUNT (BEAKER) (test puvv=177) 8.0 K/ L 3.5-10.5 RED BLOOD CELL COUNT (BEAKER) (test thss=356) 3.32 M/ L 4.63-6.08 HEMOGLOBIN (BEAKER) (test nylj=318) 9.9 GM/DL 13.7-17.5 HEMATOCRIT (BEAKER) (test ebho=630) 29.6 % 40.1-51.0 MEAN CORPUSCULAR VOLUME (BEAKER) (test ebtb=208) 89.2 fL 79.0-92.2 MEAN CORPUSCULAR HEMOGLOBIN (BEAKER) (test 29.8 pg 25.7-32.2 tpyz=918) MEAN CORPUSCULAR HEMOGLOBIN CONC (BEAKER) (test 33.4 GM/DL 32.3-36.5 gplt=243) RED CELL DISTRIBUTION WIDTH (BEAKER) (test 12.7 % 11.6-14.4 momx=554) PLATELET COUNT (BEAKER) (test lerm=412) 266 K/CU MM 150-450 MEAN PLATELET VOLUME (BEAKER) (test kmpc=113) 11.1 fL 9.4-12.4 NUCLEATED RED BLOOD CELLS (BEAKER) (test 0 /100 WBC 0-0 uynv=873) NEUTROPHILS RELATIVE PERCENT (BEAKER) (test 81 % iihm=216) LYMPHOCYTES RELATIVE PERCENT (BEAKER) (test 13 % lxej=092) MONOCYTES RELATIVE PERCENT (BEAKER) (test 5 % hzra=929) EOSINOPHILS RELATIVE PERCENT (BEAKER) (test 0 % savf=428) BASOPHILS RELATIVE PERCENT (BEAKER) (test 0 % kjyv=529) NEUTROPHILS ABSOLUTE COUNT (BEAKER) (test 6.42 K/ L 1.78-5.38 uucb=782) LYMPHOCYTES ABSOLUTE COUNT (BEAKER) (test 1.07 K/ L 1.32-3.57 rizs=127) MONOCYTES ABSOLUTE COUNT (BEAKER) (test 0.42 K/ L 0.30-0.82 ihne=509) EOSINOPHILS ABSOLUTE COUNT (BEAKER) (test 0.01 K/ L 0.04-0.54 pqlk=263) BASOPHILS ABSOLUTE COUNT (BEAKER) (test 0.01 K/ L 0.01-0.08 dbia=226) IMMATURE GRANULOCYTES-RELATIVE PERCENT (BEAKER) 0 % 0-1 (test vjjn=6801) [id number] 07:06:00 Test Item Value Reference Range Comments PARTIAL THROMBOPLASTIN TIME (BEAKER) (test 92.5 seconds 22.5-36.0 rwnd=226) [id number] 01:03:00 Test Item Value Reference Range Comments PARTIAL THROMBOPLASTIN TIME (BEAKER) (test 89.4 seconds 22.5-36.0 zhcq=917) POCT-GLUCOSE [id number] 21:19:00 Test Item Value Reference Range Comments POC-GLUCOSE METER (BEAKER) 248 mg/dL 70-110 TESTED AT [address] (test frfj=7678) [facility] [address] [id number] 17:49:00 Test Item Value Reference Range Comments PARTIAL THROMBOPLASTIN TIME (BEAKER) (test 60.9 seconds 22.5-36.0 doyn=056) POCT-GLUCOSE [id number] 17:08:00 Test Item Value Reference Range Comments POC-GLUCOSE METER (BEAKER) 244 mg/dL 70-110 TESTED AT [address] (test ntzf=8723) [place] [address] POCT-GLUCOSE [id number] 12:27:00 Test Item Value Reference Range Comments POC-GLUCOSE METER (BEAKER) 276 mg/dL 70-110 TESTED AT [address] (test blmq=3585) [place] [address] POCT-GLUCOSE [id number] 07:46:00 Test Item Value Reference Range Comments POC-GLUCOSE METER (BEAKER) 142 mg/dL 70-110 TESTED AT [address] (test vnjg=4406) [place] [id number] TROPONIN [id number] 07:36:00 Test Item Value Reference Range Comments TROPONIN I (BEAKER) (test rojn=901) 0.41 ng/mL 0.00-0.03 Troponin I (TnI) levels must be interpreted [...] failure, acidosis, acute neurological disease, and persistent tachyarrhythmia.B-TYPE NATRIURETIC FACTOR (BNP) 07:32:00 Test Item Value Reference Range Comments B-TYPE NATRIURETIC PEPTIDE (BEAKER) (test 411 pg/mL 0-100 hfkb=958) BASIC METABOLIC [id number] 07:20:00 Test Item Value Reference Range Comments SODIUM (BEAKER) (test 140 meq/L 136-145 dmjb=284) POTASSIUM (BEAKER) (test 3.8 meq/L 3.5-5.1 raam=385) CHLORIDE (BEAKER) (test 101 meq/L 98-107 qvbw=458) CO2 (BEAKER) (test 28 meq/L 22-29 yitx=835) BLOOD UREA NITROGEN 47 mg/dL 7-21 (BEAKER) (test ouhy=090) CREATININE (BEAKER) (test 2.57 mg/dL 0.57-1.25 ktkg=707) GLUCOSE RANDOM (BEAKER) 137 mg/dL 70-105 (test fyuc=193) CALCIUM (BEAKER) (test 10.0 mg/dL 8.4-10.2 viya=645) EGFR (BEAKER) (test 25 mL/min/1.73 sq m ESTIMATED GFR IS NOT vtjz=6048) ACCURATE CREATININE CLEARANCE IN PREDICTING GLOMERULAR FILTRATION RATE. ESTIMATED GFR IS NOT APPLICABLE FOR DIALYSIS PATIENTS. URIC [id number] 07:19:00 Test Item Value Reference Range Comments URIC ACID (BEAKER) (test yxkj=179) 9.4 mg/dL 2.6-7.2 [id number] 07:19:00 Test Item Value Reference Range Comments MAGNESIUM (BEAKER) (test smnw=170) 1.8 mg/dL 1.6-2.6 CBC (HEMOGRAM ONLY)2017-08-13 07:09:00 Test Item Value Reference Range Comments WHITE BLOOD CELL COUNT (BEAKER) (test qjrp=210) 7.2 K/ L 3.5-10.5 RED BLOOD CELL COUNT (BEAKER) (test jdbv=077) 3.18 M/ L 4.63-6.08 HEMOGLOBIN (BEAKER) (test qqkb=911) 9.4 GM/DL 13.7-17.5 HEMATOCRIT (BEAKER) (test ovuy=119) 28.6 % 40.1-51.0 MEAN CORPUSCULAR VOLUME (BEAKER) (test sdwp=346) 89.9 fL 79.0-92.2 MEAN CORPUSCULAR HEMOGLOBIN (BEAKER) (test 29.6 pg 25.7-32.2 edak=921) MEAN CORPUSCULAR HEMOGLOBIN CONC (BEAKER) (test 32.9 GM/DL 32.3-36.5 zxrl=019) RED CELL DISTRIBUTION WIDTH (BEAKER) (test 12.9 % 11.6-14.4 aitb=413) PLATELET COUNT (BEAKER) (test cvtc=111) 255 K/CU MM 150-450 MEAN PLATELET VOLUME (BEAKER) (test itdi=439) 11.6 fL 9.4-12.4 NUCLEATED RED BLOOD CELLS (BEAKER) (test 0 /100 WBC 0-0 wyzl=022) POCT-GLUCOSE [id number] 21:34:00 Test Item Value Reference Range Comments POC-GLUCOSE METER (BEAKER) 191 mg/dL 70-110 TESTED AT [address] (test piiz=0014) [place] [id number] POCT-GLUCOSE [id number] 17:01:00 Test Item Value Reference Range Comments POC-GLUCOSE METER (BEAKER) 140 mg/dL 70-110 TESTED AT [address] (test tyyf=3496) [place] [id number] RESPIRATORY PANEL [id number] 16:05:00 Test Item Value Reference Range Comments HUMAN METAPNEUMOVIRUS (BEAKER) (test Not detected Not detected, Inconclusive kwpu=1173) RHINOVIRUS (BEAKER) (test lctg=4653) Not detected Not detected, Inconclusive INFLUENZA A (BEAKER) (test Not detected Not detected, Inconclusive uudg=2161) INFLUENZA A SUBTYPE H1 (BEAKER) Not detected Not detected, Inconclusive (test pvyt=0162) INFLUENZA A SUBTYPE H3 (BEAKER) Not detected Not detected, Inconclusive (test pjih=6639) INFLUENZA A SUBTYPE H1-2009 (BEAKER) Not detected Not detected, Inconclusive (test knzm=6604) INFLUENZA B (BEAKER) (test Not detected Not detected, Inconclusive hxwz=5131) RESPIRATORY SYNCYTIAL VIRUS (BEAKER) Not detected Not detected, Inconclusive (test pdjq=9194) PARAINFLUENZA VIRUS 1 (BEAKER) (test Not detected Not detected, Inconclusive qncy=9955) PARAINFLUENZA VIRUS 2 (BEAKER) (test Not detected Not detected, Inconclusive ngeb=2750) PARAINFLUENZA VIRUS 3 (BEAKER) (test Not detected Not detected, Inconclusive ilah=3298) PARAINFLUENZA VIRUS 4 (BEAKER) (test Not detected Not detected, Inconclusive khcw=9835) ADENOVIRUS (BEAKER) (test kydu=5825) Not detected Not detected, Inconclusive CORONAVIRUS 229E (BEAKER) (test Not detected Not detected, Inconclusive mbgq=8261) CORONAVIRUS HKU1 (BEAKER) (test Not detected Not detected, Inconclusive ocpk=6754) CORONAVIRUS NL63 (BEAKER) (test Not detected Not detected, Inconclusive ufys=3725) CORONAVIRUS OC43 (BEAKER) (test Not detected Not detected, Inconclusive seda=0182) BORDETELLA PERTUSSIS (BEAKER) (test Not detected Not detected, Inconclusive zimp=7239) CHLAMYDOPHILA PNEUMONIAE (BEAKER) Not detected Not detected, Inconclusive (test jafj=6333) MYCOPLASMA PNEUMONIAE (BEAKER) (test Not detected Not detected, Inconclusive zltp=6351) [id number] 15:01:00 Test Item Value Reference Range Comments PARTIAL THROMBOPLASTIN TIME (BEAKER) (test 66.6 seconds 22.5-36.0 hjbx=005) POCT-GLUCOSE [id number] 12:33:00 Test Item Value Reference Range Comments POC-GLUCOSE METER (BEAKER) 224 mg/dL 70-110 TESTED AT [facility] [address] (test cduo=0112) [facility] [address] [id number] 08:52:00 Test Item Value Reference Range Comments PARTIAL THROMBOPLASTIN TIME (BEAKER) (test 90.9 seconds 22.5-36.0 ickk=589) BASIC METABOLIC [id number] 08:17:00 Test Item Value Reference Range Comments SODIUM (BEAKER) (test 140 meq/L 136-145 xuov=728) POTASSIUM (BEAKER) (test 3.7 meq/L 3.5-5.1 lygq=865) CHLORIDE (BEAKER) (test 102 meq/L 98-107 pziz=894) CO2 (BEAKER) (test 26 meq/L 22-29 yenf=450) BLOOD UREA NITROGEN 45 mg/dL 7-21 (BEAKER) (test itse=803) CREATININE (BEAKER) (test 2.47 mg/dL 0.57-1.25 ltka=573) GLUCOSE RANDOM (BEAKER) 131 mg/dL 70-105 (test iydb=173) CALCIUM (BEAKER) (test 9.5 mg/dL 8.4-10.2 dtus=120) EGFR (BEAKER) (test 26 mL/min/1.73 sq m ESTIMATED GFR IS NOT igej=0743) ACCURATE CREATININE CLEARANCE IN PREDICTING GLOMERULAR FILTRATION RATE. ESTIMATED GFR IS NOT APPLICABLE FOR DIALYSIS PATIENTS. [id number] 08:09:00 Test Item Value Reference Range Comments MAGNESIUM (BEAKER) (test jnme=712) 1.7 mg/dL 1.6-2.6 CBC (HEMOGRAM ONLY)2017-08-12 08:07:00 Test Item Value Reference Range Comments WHITE BLOOD CELL COUNT (BEAKER) (test rsig=506) 6.7 K/ L 3.5-10.5 RED BLOOD CELL COUNT (BEAKER) (test mjxb=483) 2.91 M/ L 4.63-6.08 HEMOGLOBIN (BEAKER) (test wbsb=392) 8.7 GM/DL 13.7-17.5 HEMATOCRIT (BEAKER) (test pbsw=855) 26.1 % 40.1-51.0 MEAN CORPUSCULAR VOLUME (BEAKER) (test erhx=284) 89.7 fL 79.0-92.2 MEAN CORPUSCULAR HEMOGLOBIN (BEAKER) (test 29.9 pg 25.7-32.2 ztae=725) MEAN CORPUSCULAR HEMOGLOBIN CONC (BEAKER) (test 33.3 GM/DL 32.3-36.5 undu=801) RED CELL DISTRIBUTION WIDTH (BEAKER) (test 12.9 % 11.6-14.4 xzji=016) PLATELET COUNT (BEAKER) (test twmj=950) 203 K/CU MM 150-450 MEAN PLATELET VOLUME (BEAKER) (test ifol=713) 11.6 fL 9.4-12.4 NUCLEATED RED BLOOD CELLS (BEAKER) (test 0 /100 WBC 0-0 watf=074) POCT-GLUCOSE [id number] 08:04:00 Test Item Value Reference Range Comments POC-GLUCOSE METER (BEAKER) 143 mg/dL 70-110 TESTED AT [facility] [address] (test lzzj=9106) [facility] [address] [id number] 23:48:00 Test Item Value Reference Range Comments PARTIAL THROMBOPLASTIN TIME (BEAKER) (test 57.4 seconds 22.5-36.0 dlsh=093) Prior to initiating heparinPOCT-GLUCOSE [id number] 21:57:00 Test Item Value Reference Range Comments POC-GLUCOSE METER (BEAKER) 216 mg/dL 70-110 TESTED AT [address] (test xpfh=8924) [place] [address] POCT-GLUCOSE [id number] 17:33:00 Test Item Value Reference Range Comments POC-GLUCOSE METER (BEAKER) 270 mg/dL 70-110 TESTED AT [address] (test bmpp=7482) [place] [address] [id number] 17:23:00 Test Item Value Reference Range Comments PARTIAL THROMBOPLASTIN TIME (BEAKER) (test 53.9 seconds 22.5-36.0 xisn=589) POCT-GLUCOSE [id number] 11:59:00 Test Item Value Reference Range Comments POC-GLUCOSE METER (BEAKER) 164 mg/dL 70-110 TESTED AT [address] (test nqgu=2812) [place] [address] [id number] 09:09:00 Test Item Value Reference Range Comments PARTIAL THROMBOPLASTIN TIME (BEAKER) (test 55.7 seconds 22.5-36.0 rfvo=866) POCT-GLUCOSE [id number] 08:35:00 Test Item Value Reference Range Comments POC-GLUCOSE METER (BEAKER) 148 mg/dL 70-110 TESTED AT [address] (test tede=0750) [place] [address] CBC (HEMOGRAM ONLY)2017-08-11 06:32:00 Test Item Value Reference Range Comments WHITE BLOOD CELL COUNT (BEAKER) (test yeno=028) 6.5 K/ L 3.5-10.5 RED BLOOD CELL COUNT (BEAKER) (test jrmt=763) 3.39 M/ L 4.63-6.08 HEMOGLOBIN (BEAKER) (test avht=605) 10.1 GM/DL 13.7-17.5 HEMATOCRIT (BEAKER) (test evvr=241) 30.5 % 40.1-51.0 MEAN CORPUSCULAR VOLUME (BEAKER) (test slac=377) 90.0 fL 79.0-92.2 MEAN CORPUSCULAR HEMOGLOBIN (BEAKER) (test 29.8 pg 25.7-32.2 cflh=739) MEAN CORPUSCULAR HEMOGLOBIN CONC (BEAKER) (test 33.1 GM/DL 32.3-36.5 bwyc=658) RED CELL DISTRIBUTION WIDTH (BEAKER) (test 13.1 % 11.6-14.4 niys=351) PLATELET COUNT (BEAKER) (test kvoy=628) 211 K/CU MM 150-450 MEAN PLATELET VOLUME (BEAKER) (test fqhz=992) 11.5 fL 9.4-12.4 NUCLEATED RED BLOOD CELLS (BEAKER) (test 0 /100 WBC 0-0 zawv=847) TROPONIN [id number] 06:20:00 Test Item Value Reference Range Comments TROPONIN I (BEAKER) (test iikf=946) 0.88 ng/mL 0.00-0.03 Troponin I (TnI) levels must be interpreted [...] failure, acidosis, acute neurological disease, and persistent tachyarrhythmia.BASIC METABOLIC [id number] 06:20:00 Test Item Value Reference Range Comments SODIUM (BEAKER) (test 140 meq/L 136-145 aspo=924) POTASSIUM (BEAKER) (test 3.8 meq/L 3.5-5.1 tiad=862) CHLORIDE (BEAKER) (test 105 meq/L 98-107 cajc=603) CO2 (BEAKER) (test 24 meq/L 22-29 bdkr=406) BLOOD UREA NITROGEN 40 mg/dL 7-21 (BEAKER) (test jgyb=075) CREATININE (BEAKER) (test 2.48 mg/dL 0.57-1.25 yakz=946) GLUCOSE RANDOM (BEAKER) 133 mg/dL 70-105 (test dqyj=660) CALCIUM (BEAKER) (test 9.9 mg/dL 8.4-10.2 xuqj=296) EGFR (BEAKER) (test 26 mL/min/1.73 sq m ESTIMATED GFR IS NOT tskh=4735) ACCURATE CREATININE CLEARANCE IN PREDICTING GLOMERULAR FILTRATION RATE. ESTIMATED GFR IS NOT APPLICABLE FOR DIALYSIS PATIENTS. [id number] 06:05:00 Test Item Value Reference Range Comments MAGNESIUM (BEAKER) (test uxml=010) 1.9 mg/dL 1.6-2.6 [id number] 01:32:00 Test Item Value Reference Range Comments PARTIAL THROMBOPLASTIN TIME (BEAKER) (test 49.2 seconds 22.5-36.0 irmm=570) TROPONIN [id number] 23:03:00 Test Item Value Reference Range Comments TROPONIN I (BEAKER) (test icbv=168) 0.82 ng/mL 0.00-0.03 Troponin I (TnI) levels must be interpreted [...] failure, acidosis, acute neurological disease, and persistent tachyarrhythmia.POCT-GLUCOSE [id number] 21:37:00 Test Item Value Reference Range Comments POC-GLUCOSE METER ([employer]) 225 mg/dL 70-110 TESTED AT [address] (test uqxz=2689) [place] [address] HEMOGLOBIN [id number] 18:00:00 Test Item Value Reference Range Comments HEMOGLOBIN A1C (BEAKER) (test buyq=556) 6.1 % 4.3-6.1 TROPONIN [id number] 17:30:00 Test Item Value Reference Range Comments TROPONIN I (BEAKER) (test lwbu=236) 1.00 ng/mL 0.00-0.03 Troponin I (TnI) levels must be interpreted [...] failure, acidosis, acute neurological disease, and persistent tachyarrhythmia.POCT-GLUCOSE [id number] 17:29:00 Test Item Value Reference Range Comments POC-GLUCOSE METER (BEAKER) 136 mg/dL 70-110 TESTED AT [address] (test cipg=3983) [place] [address] INFLUENZA A H1N1 [id number] 14:18:00 Test Item Value Reference Range Comments INFLUENZA A RNA ([employer]) (test Not Detected Not Detected, Inconclusive mqjq=9003) NOVEL H1N1 RNA (BEAKER) (test Not Detected Not Detected, Inconclusive bica=0045) These assays were performed by real-time RT-PCR (director housekeeping-PCR) utilizing fluorogenic hydrolysis probe technology for the detection of human Influenza A viruses and the differential detection of novel H1N1 Influenza virus in respiratory specimens. The test is composed of (1) an RNA extraction from patient specimen, and (2) director housekeeping-PCR amplification and detection with human Influenza A and novel [id number]-vkxxwzqr primers and probes. A well-conserved region of the Influenza A matrix gene is targeted in one set of reactions to identify both seasonal Influenza A and novel H1N1 Influenza virus in the specimen. In addition, a specific region of the hemagglutinin gene is targeted to differentiate the novel H1N1 virusfrom the seasonal human influenza. An internal control is used to confirm PCR amplification. Genetic variation and other factors can affect the accuracy of nucleic acid testing; therefore, the resultsshould be interpreted in light of clinical data. This test was developed and its performance characteristics determined by the [facility] Pathology Department, Section of Molecular Pathology. It has not been cleared or approved by the U.S. Food and Drug Administration (FDA). SinceFDA approval is not required for clinical use of the test, validation was done as required by The Clinical Laboratory Amendments of 1988.These assays were performed by real-time RT-PCR (director housekeeping-PCR) utilizing fluorogenic hydrolysis probe technology for the detection of human Influenza A viruses and the differential detection of novel H1N1 Influenza virus in respiratory specimens. The test is composed of (1) an RNA extraction from patient specimen, and (2) director housekeeping-PCR amplification and detection with human Influenza A and novel C5O3-djbotznt primers and probes. A well-conserved region of the Influenza A matrix gene is targeted in one set of reactions to identify both seasonal Influenza A and novel H1N1 Influenza virus in the specimen. In addition, a specific region of the hemagglutinin gene is targeted to differentiate the novel H1N1 virus from the seasonal human influenza. An internal control is used to confirm PCR amplification. Genetic variation and other factors can affect the accuracy of nucleic acid testing; therefore, the results should be interpreted in light of clinical data. This test was developed and its performance characteristics determined by the [facility] Pathology Department, Section of Molecular Pathology. It has not been cleared or approved by the U.S. Food and Drug Administration ( FDA). Since FDA approval is not required for clinical use of the test, validation was done as required by The Clinical Laboratory Amendments of 1988.POCT-GLUCOSE [id number] 12:55:00 Test Item Value Reference Range Comments POC-GLUCOSE METER (BEAKER) 178 mg/dL 70-110 [facility] [address] [facility] (test anin=5702) [facility] [address] TROPONIN [id number] 09:38:00 Test Item Value Reference Range Comments TROPONIN I (BEAKER) (test ikqb=293) 0.86 ng/mL 0.00-0.03 Troponin I (TnI) levels must be interpreted [...] failure, acidosis, acute neurological disease, and persistent tachyarrhythmia.CREATINE KINASE (CK), TOTAL AND [id number] 09:34:00 Test Item Value Reference Range Comments CREATINE KINASE TOTAL (BEAKER) (test vjxm=722) 102 U/L 29-200 CREATINE KINASE-MB (BEAKER) (test yqkc=458) 1.8 ng/mL 0.0-6.6 CREATINE KINASE-MB INDEX (BEAKER) (test rofw=175) 1.8 % CK-MB Reference Range:<6.7 Normal6.7-10.0 Borderline>10.0 [id number] 09:28:00 Test Item Value Reference Range Comments MAGNESIUM (BEAKER) (test ntxu=655) 1.9 mg/dL 1.6-2.6 BASIC METABOLIC [id number] 09:28:00 Test Item Value Reference Range Comments SODIUM (BEAKER) (test 139 meq/L 136-145 kaow=924) POTASSIUM (BEAKER) (test 3.7 meq/L 3.5-5.1 watl=383) CHLORIDE (BEAKER) (test 106 meq/L 98-107 hhgb=926) CO2 (BEAKER) (test 21 meq/L 22-29 alsh=425) BLOOD UREA NITROGEN 39 mg/dL 7-21 (BEAKER) (test gpiv=946) CREATININE (BEAKER) (test 2.34 mg/dL 0.57-1.25 nawv=970) GLUCOSE RANDOM (BEAKER) 160 mg/dL 70-105 (test iplc=466) CALCIUM (BEAKER) (test 9.8 mg/dL 8.4-10.2 vdst=434) EGFR (BEAKER) (test 28 mL/min/1.73 sq m ESTIMATED GFR IS NOT oiae=8612) ACCURATE CREATININE CLEARANCE IN PREDICTING GLOMERULAR FILTRATION RATE. ESTIMATED GFR IS NOT APPLICABLE FOR DIALYSIS PATIENTS. CBC W/PLT COUNT & AUTO [id number] 08:48:00 Test Item Value Reference Range Comments WHITE BLOOD CELL COUNT (BEAKER) (test mqcp=887) 13.9 K/ L 3.5-10.5 RED BLOOD CELL COUNT (BEAKER) (test bfax=109) 3.40 M/ L 4.63-6.08 HEMOGLOBIN (BEAKER) (test hefz=660) 10.2 GM/DL 13.7-17.5 HEMATOCRIT (BEAKER) (test rzka=394) 30.1 % 40.1-51.0 MEAN CORPUSCULAR VOLUME (BEAKER) (test rckh=178) 88.5 fL 79.0-92.2 MEAN CORPUSCULAR HEMOGLOBIN (BEAKER) (test 30.0 pg 25.7-32.2 qbvu=956) MEAN CORPUSCULAR HEMOGLOBIN CONC (BEAKER) (test 33.9 GM/DL 32.3-36.5 tage=475) RED CELL DISTRIBUTION WIDTH (BEAKER) (test 13.2 % 11.6-14.4 gobz=996) PLATELET COUNT (BEAKER) (test hfpj=346) 277 K/CU MM 150-450 MEAN PLATELET VOLUME (BEAKER) (test hcph=974) 11.3 fL 9.4-12.4 NUCLEATED RED BLOOD CELLS (BEAKER) (test 0 /100 WBC 0-0 usue=017) NEUTROPHILS RELATIVE PERCENT (BEAKER) (test 74 % szce=374) LYMPHOCYTES RELATIVE PERCENT (BEAKER) (test 15 % fazt=737) MONOCYTES RELATIVE PERCENT (BEAKER) (test 9 % rwxf=788) EOSINOPHILS RELATIVE PERCENT (BEAKER) (test 1 % yaso=348) BASOPHILS RELATIVE PERCENT (BEAKER) (test 0 % cgew=943) NEUTROPHILS ABSOLUTE COUNT (BEAKER) (test 10.31 K/ L 1.78-5.38 xujy=257) LYMPHOCYTES ABSOLUTE COUNT (BEAKER) (test 2.02 K/ L 1.32-3.57 aidr=009) MONOCYTES ABSOLUTE COUNT (BEAKER) (test 1.31 K/ L 0.30-0.82 cjpk=119) EOSINOPHILS ABSOLUTE COUNT (BEAKER) (test 0.11 K/ L 0.04-0.54 aghd=492) BASOPHILS ABSOLUTE COUNT (BEAKER) (test 0.04 K/ L 0.01-0.08 ivee=002) IMMATURE GRANULOCYTES-RELATIVE PERCENT (BEAKER) 1 % 0-1 (test kvay=5932) B-TYPE NATRIURETIC FACTOR (BNP)2017-08-10 08:15:00 Test Item Value Reference Range Comments B-TYPE NATRIURETIC PEPTIDE (BEAKER) (test 788 pg/mL 0-100 bjxo=618) RAPID INFLUENZA A&B [id number] 07:57:00 Test Item Value Reference Range Comments RAPID INFLUENZA A AG (BEAKER) (test Negative Negative, Inconclusive rywp=9271) RAPID INFLUENZA B AG (BEAKER) (test Negative Negative, Inconclusive cvdv=6284) [id number] 07:55:00 Test Item Value Reference Range Comments PROTIME (BEAKER) (test yqtp=962) 14.8 seconds 11.7-14.7 INR (BEAKER) (test cfvu=228) 1.2 <=5.9 PARTIAL THROMBOPLASTIN TIME (BEAKER) (test 34.1 seconds 22.5-36.0 nlih=501) RECOMMENDED COUMADIN/WARFARIN INR THERAPY RANGESSTANDARD DOSE: 2.0 - 3.0 Includes: PROPHYLAXIS forvenous thrombosis, systemic embolization; TREATMENT for venous thrombosis and/or pulmonary embolus.HIGH RISK: Target INR is 2.5-3.5 for patients with mechanical heart valves.RAD, CHEST, 2 [id number] 06:43: 00Reason for exam:->SHORTNESS OF BREATHFINAL REPORT RAD, CHEST, 2 VIEWS INDICATION: SHORTNESS OF BREATH COMPARISON: Prior day's exam TECHNIQUE: Portable frontal view of the chest. IMPRESSION: Stable ICDStable, prominent cardiac silhouette.Increased interstitial prominence, particularly at the lung bases where there is blunting of the costophrenic angles. Findings are compatible with pulmonary interstitial edema andsmall bilateral effusions.No acute osseous abnormality. Signed: Ashley Sandovalort Verified Date/Time: 08/10/2017 06:43:10 Reading Location: [facility] C013 Ortho Consult Reading Room RAD, SINUSES PARANASAL, MIN 3 [id number] 15:27: 00Reason for Exam:->i35Obzabr for Exam:->r09.81Location->[facility] Hospital[facility] Sinus series: Clinical History: R05 R Comparison: No comparison Views: Three Report:The frontal, ethmoid, sphenoid and maxillary sinuses are well visualized. There is no evidence of mucosal thickening. There is no evidence of an air fluid level. The bone mineralization is within normal limits. The mastoid air cells are well aerated.The visualized regional skeleton is unremarkable Impression: Unremarkable sinus series. Signed: Jorge A Markham Verified Date/Time : 07/09/2017 15:27:03 Reading Location: [address] Radiology Reading Room RAD, CHEST, 2 [id number] 14:42:00Reason for Exam:->r09.81Reason for Exam:-&gt ;r69Gpzaztcg->[facility] HospitalFINAL REPORT Chest x-ray Clinical History: r09.81r05 Comparison: September Views: 2 Chest x-ray:The cardiac and mediastinal silhouettes are prominent. There is no evidence of a pneumothorax. There is no evidence of a pleural effusion. There is no evidence of overt cardiac failure. The visible regional skeleton is intact. There is no evidence of a focal parenchymalopacity. Sternotomy changes are noted. There is left subclavian pacemaker with two leads. Impression: No active cardiopulmonary disease. Decreased pulmonary vascular congestion as compared to the priorstudy. Signed: Round, Jorge A MDReport Verified Date/Time: 07/09/2017 14:42:37 Reading Location: [address] Radiology Reading Room Electronically signed by: JORGE A MARKHAM M.D. on 02:[id number] 12:20:00 Test Item Value Reference Range Comments PROSTATE SPECIFIC ANTIGEN (BEAKER) (test 15.4 ng/mL 0.0-4.0 scon=148) [id number] 11:23:00 Test Item Value Reference Range Comments THYROID STIMULATING HORMONE (BEAKER) (test 2.55 uIU/mL 0.35-4.94 efhb=036) BASIC METABOLIC [id number] 10:52:00 Test Item Value Reference Range Comments SODIUM (BEAKER) (test 138 meq/L 136-145 jjyp=434) POTASSIUM (BEAKER) (test 4.1 meq/L 3.5-5.1 ptbc=725) CHLORIDE (BEAKER) (test 103 meq/L 98-107 qads=802) CO2 (BEAKER) (test 26 meq/L 22-29 fqne=774) BLOOD UREA NITROGEN 36 mg/dL 7-21 (BEAKER) (test smuw=735) CREATININE (BEAKER) (test 2.04 mg/dL 0.57-1.25 hkwo=454) GLUCOSE RANDOM (BEAKER) 159 mg/dL 70-105 (test fzre=812) CALCIUM (BEAKER) (test 9.9 mg/dL 8.4-10.2 ocdm=100) EGFR (BEAKER) (test 32 mL/min/1.73 sq m ESTIMATED GFR IS NOT axxn=0615) ACCURATE CREATININE CLEARANCE IN PREDICTING GLOMERULAR FILTRATION RATE. ESTIMATED GFR IS NOT APPLICABLE FOR DIALYSIS PATIENTS. Specimen slightly ictericLIPID [id number] 10:52:00 Test Item Value Reference Range Comments TRIGLYCERIDES (BEAKER) (test swvs=271) 304 mg/dL CHOLESTEROL (BEAKER) (test btns=001) 237 mg/dL HDL CHOLESTEROL (BEAKER) (test whxp=562) 33 mg/dL LDL CHOLESTEROL CALCULATED (BEAKER) (test 143 mg/dL onvs=411) Triglyceride Reference Range: Low Risk <150 Borderline 150- 199 High Risk 200-499 Very High Risk >=500Cholesterol Reference Range: Low Risk <200 Borderline 200-239 High Risk > 240HDL Cholesterol Reference Range: Low Risk >=60 High Risk <40LDL Cholesterol Reference Range: Optimal <100 Near Optimal 100-129 Borderline 130-159 High 160-189 Very High >=190 Specimen slightly ictericHEPATIC FUNCTION [id number] 10:52: 00 Test Item Value Reference Range Comments TOTAL PROTEIN (BEAKER) (test xksi=941) 7.4 gm/dL 6.0-8.3 ALBUMIN (BEAKER) (test mfwg=9165) 4.1 g/dL 3.5-5.0 BILIRUBIN TOTAL (BEAKER) (test qzkk=414) 0.3 mg/dL 0.2-1.2 BILIRUBIN DIRECT (BEAKER) (test vtsx=799) 0.2 mg/dL 0.1-0.5 ALKALINE PHOSPHATASE (BEAKER) (test cgir=866) 86 U/L 40-150 AST (SGOT) (BEAKER) (test eyen=378) 18 U/L 5-34 ALT (SGPT) (BEAKER) (test pred=782) 17 U/L 6-55 Specimen slightly ictericB-TYPE NATRIURETIC FACTOR (BNP)2017-05-21 10:27:00 Test Item Value Reference Range Comments B-TYPE NATRIURETIC PEPTIDE (BEAKER) (test 187 pg/mL 0-100 wyyk=086) CBC W/PLT COUNT & AUTO [id number] 09:55:00 Test Item Value Reference Range Comments WHITE BLOOD CELL COUNT (BEAKER) (test mogn=806) 10.2 K/ L 3.5-10.5 RED BLOOD CELL COUNT (BEAKER) (test gvyi=926) 4.31 M/ L 4.63-6.08 HEMOGLOBIN (BEAKER) (test eliu=031) 12.7 GM/DL 13.7-17.5 HEMATOCRIT (BEAKER) (test tiel=246) 37.9 % 40.1-51.0 MEAN CORPUSCULAR VOLUME (BEAKER) (test czic=368) 87.9 fL 79.0-92.2 MEAN CORPUSCULAR HEMOGLOBIN (BEAKER) (test 29.5 pg 25.7-32.2 nvcb=821) MEAN CORPUSCULAR HEMOGLOBIN CONC (BEAKER) (test 33.5 GM/DL 32.3-36.5 vxpc=101) RED CELL DISTRIBUTION WIDTH (BEAKER) (test 12.8 % 11.6-14.4 cftt=444) PLATELET COUNT (BEAKER) (test fvxz=888) 226 K/CU MM 150-450 MEAN PLATELET VOLUME (BEAKER) (test evmv=593) 10.3 fL 9.4-12.4 NUCLEATED RED BLOOD CELLS (BEAKER) (test 0 /100 WBC 0-0 pxoe=241) NEUTROPHILS RELATIVE PERCENT (BEAKER) (test 61 % ynez=698) LYMPHOCYTES RELATIVE PERCENT (BEAKER) (test 28 % wwmi=936) MONOCYTES RELATIVE PERCENT (BEAKER) (test 8 % brho=723) EOSINOPHILS RELATIVE PERCENT (BEAKER) (test 1 % yguc=422) BASOPHILS RELATIVE PERCENT (BEAKER) (test 0 % ocby=969) NEUTROPHILS ABSOLUTE COUNT (BEAKER) (test 6.23 K/ L 1.78-5.38 fxwr=721) LYMPHOCYTES ABSOLUTE COUNT (BEAKER) (test 2.89 K/ L 1.32-3.57 xaxr=930) MONOCYTES ABSOLUTE COUNT (BEAKER) (test 0.85 K/ L 0.30-0.82 cwtj=596) EOSINOPHILS ABSOLUTE COUNT (BEAKER) (test 0.12 K/ L 0.04-0.54 bprv=253) BASOPHILS ABSOLUTE COUNT (BEAKER) (test 0.04 K/ L 0.01-0.08 sras=675) IMMATURE GRANULOCYTES-RELATIVE PERCENT (BEAKER) 1 % 0-1 (test lbxl=2650) MR, SPINE, THORACIC, WITHOUT [id number] 11:27:00FINAL REPORT MRI thoracic spine without contrast 04/29/2017 at 1049. CLINICAL HISTORY: Myelopathy. TECHNIQUE: Noncontrast MRI of the thoracic spine was performed, utilizing sagittal T1, T2, STIR, axial T1 and T2-weighted sequences. COMPARISON: None available. FINDINGS: The spinalcord is normal in size and signal intensity. There is no fracture or subluxation. Bone marrow signalintensity is unremarkable. The spinal canal is of normal diameter. There are mild degenerative changes involving the intervertebral disks and facet joints, without remarkable central canal or foraminal stenosis. The paraspinal soft tissue is unremarkable. IMPRESSION: 1. Normal thoracic spinal cord.2. Mild degenerative changes, without remarkable central canal or foraminal stenosis. Signed: Gustabo Cedenoeport Verified Date/Time: 2016 11:27:33 Reading Location: [facility] C013V Neuro Reading Room [id number] 14:03:00 Test Item Value Reference Range Comments THYROID STIMULATING HORMONE (BEAKER) (test 2.18 uIU/mL 0.35-4.94 dszf=353) [id number] 13:01:00 Test Item Value Reference Range Comments PROSTATE SPECIFIC ANTIGEN (BEAKER) (test 12.5 ng/mL 0.0-4.0 eage=365) CBC W/PLT COUNT & AUTO [id number] 11:29:00 Test Item Value Reference Range Comments WHITE BLOOD CELL COUNT (BEAKER) (test svbb=785) 7.6 K/ L 4.0-10.0 RED BLOOD CELL COUNT (BEAKER) (test ubdc=597) 3.81 M/ L 4.20-5.80 HEMOGLOBIN (BEAKER) (test qqpp=969) 11.7 GM/DL 13.0-16.8 HEMATOCRIT (BEAKER) (test wnam=976) 34.1 % 40.0-50.0 MEAN CORPUSCULAR VOLUME (BEAKER) (test nzyw=176) 89.4 fL 82.0-98.0 MEAN CORPUSCULAR HEMOGLOBIN (BEAKER) (test 30.6 pg 27.0-33.0 mcwl=060) MEAN CORPUSCULAR HEMOGLOBIN CONC (BEAKER) (test 34.2 GM/DL 32.0-36.0 xfuk=205) RED CELL DISTRIBUTION WIDTH (BEAKER) (test 13.5 % 10.3-14.2 vjyi=863) PLATELET COUNT (BEAKER) (test uwzv=643) 200 K/CU MM 150-430 MEAN PLATELET VOLUME (BEAKER) (test sytc=121) 8.2 fL 6.5-10.5 NUCLEATED RED BLOOD CELLS (BEAKER) (test 0 /100 WBC 0-0 iles=523) NEUTROPHILS RELATIVE PERCENT (BEAKER) (test 57 % ajod=638) LYMPHOCYTES RELATIVE PERCENT (BEAKER) (test 35 % lkdt=555) MONOCYTES RELATIVE PERCENT (BEAKER) (test 6 % cyry=823) EOSINOPHILS RELATIVE PERCENT (BEAKER) (test 2 % iwed=481) BASOPHILS RELATIVE PERCENT (BEAKER) (test 0 % omoo=955) NEUTROPHILS ABSOLUTE COUNT (BEAKER) (test 4.32 K/ L 1.80-8.00 dobz=867) LYMPHOCYTES ABSOLUTE COUNT (BEAKER) (test 2.68 K/ L 1.48-4.50 xtoe=533) MONOCYTES ABSOLUTE COUNT (BEAKER) (test 0.48 K/ L 0.00-1.30 ybpq=572) EOSINOPHILS ABSOLUTE COUNT (BEAKER) (test 0.13 K/ L 0.00-0.50 pdoh=349) BASOPHILS ABSOLUTE COUNT (BEAKER) (test 0.02 K/ L 0.00-0.20 ulbd=810) 0.00B-TYPE NATRIURETIC FACTOR (BNP)2017-02-22 11:16:00 Test Item Value Reference Range Comments B-TYPE NATRIURETIC PEPTIDE (BEAKER) (test 163 pg/mL 0-100 qyxd=498) BASIC METABOLIC [id number] 11:15:00 Test Item Value Reference Range Comments SODIUM (BEAKER) (test 137 meq/L 136-145 qrcv=354) POTASSIUM (BEAKER) (test 4.0 meq/L 3.5-5.1 etjx=808) CHLORIDE (BEAKER) (test 103 meq/L 98-107 rkev=329) CO2 (BEAKER) (test 22 meq/L 22-29 fggg=778) BLOOD UREA NITROGEN 47 mg/dL 7-21 (BEAKER) (test lqxt=815) CREATININE (BEAKER) (test 2.66 mg/dL 0.57-1.25 ydgb=506) GLUCOSE RANDOM (BEAKER) 116 mg/dL 70-105 (test pcvv=681) CALCIUM (BEAKER) (test 9.5 mg/dL 8.4-10.2 lyhi=028) EGFR (BEAKER) (test 24 mL/min/1.73 sq m ESTIMATED GFR IS NOT kzzl=8883) ACCURATE CREATININE CLEARANCE IN PREDICTING GLOMERULAR FILTRATION RATE. ESTIMATED GFR IS NOT APPLICABLE FOR DIALYSIS PATIENTS. Specimen slightly ictericHEPATIC FUNCTION [id number] 11:15:00 Test Item Value Reference Range Comments TOTAL PROTEIN (BEAKER) (test wgak=880) 7.7 gm/dL 6.0-8.3 ALBUMIN (BEAKER) (test hibr=6999) 4.3 g/dL 3.5-5.0 BILIRUBIN TOTAL (BEAKER) (test yzea=956) 0.4 mg/dL 0.2-1.2 BILIRUBIN DIRECT (BEAKER) (test tfij=953) 0.1 mg/dL 0.1-0.5 ALKALINE PHOSPHATASE (BEAKER) (test hhiq=078) 76 U/L 40-150 AST (SGOT) (BEAKER) (test ulyu=503) 14 U/L 5-34 ALT (SGPT) (BEAKER) (test vtle=970) 15 U/L 6-55 Specimen slightly ictericLIPID [id number] 11:15:00 Test Item Value Reference Range Comments TRIGLYCERIDES (BEAKER) (test rvbj=451) 305 mg/dL CHOLESTEROL (BEAKER) (test flja=521) 221 mg/dL HDL CHOLESTEROL (BEAKER) (test osoz=558) 30 mg/dL LDL CHOLESTEROL CALCULATED (BEAKER) (test 130 mg/dL spsn=340) Triglyceride Reference Range: Low Risk <150 Borderline 150- 199 High Risk 200-499 Very High Risk >=500Cholesterol Reference Range: Low Risk <200 Borderline 200-239 High Risk > 240HDL Cholesterol Reference Range: Low Risk >=60 High Risk <40LDL Cholesterol Reference Range: Optimal <100 Near Optimal 100-129 Borderline 130-159 High 160-189 Very High >=190 Specimen slightly [id number] 11:20:00 Test Item Value Reference Range Comments THYROID STIMULATING HORMONE (BEAKER) (test 2.38 uIU/mL 0.35-4.94 dxll=105) BASIC METABOLIC [id number] 09:56:00 Test Item Value Reference Range Comments SODIUM (BEAKER) (test 138 meq/L 136-145 hokg=866) POTASSIUM (BEAKER) (test 3.8 meq/L 3.5-5.1 vlha=655) CHLORIDE (BEAKER) (test 105 meq/L 98-107 vise=733) CO2 (BEAKER) (test 21 meq/L 22-29 sfkc=455) BLOOD UREA NITROGEN 54 mg/dL 7-21 (BEAKER) (test wjxf=555) CREATININE (BEAKER) (test 2.84 mg/dL 0.57-1.25 jrcm=283) GLUCOSE RANDOM (BEAKER) 110 mg/dL 70-105 (test eumg=338) CALCIUM (BEAKER) (test 9.2 mg/dL 8.4-10.2 esjx=889) EGFR (BEAKER) (test 22 mL/min/1.73 sq m ESTIMATED GFR IS NOT fnpg=7781) ACCURATE CREATININE CLEARANCE IN PREDICTING GLOMERULAR FILTRATION RATE. ESTIMATED GFR IS NOT APPLICABLE FOR DIALYSIS PATIENTS. Specimen slightly ictericLIPID [id number] 09:48:00 Test Item Value Reference Range Comments TRIGLYCERIDES (BEAKER) (test sxmf=510) 303 mg/dL CHOLESTEROL (BEAKER) (test spmp=135) 200 mg/dL HDL CHOLESTEROL (BEAKER) (test cdov=764) 26 mg/dL LDL CHOLESTEROL CALCULATED (BEAKER) (test 113 mg/dL dixd=733) Triglyceride Reference Range: Low Risk <150 Borderline 150- 199 High Risk 200-499 Very High Risk >=500Cholesterol Reference Range: Low Risk <200 Borderline 200-239 High Risk > 240HDL Cholesterol Reference Range: Low Risk >=60 High Risk <40LDL Cholesterol Reference Range: Optimal <100 Near Optimal 100-129 Borderline 130-159 High 160-189 Very High >=190 Specimen slightly ictericHEPATIC FUNCTION [id number] 09:48: 00 Test Item Value Reference Range Comments TOTAL PROTEIN (BEAKER) (test ssms=784) 7.1 gm/dL 6.0-8.3 ALBUMIN (BEAKER) (test tcte=7694) 4.0 g/dL 3.5-5.0 BILIRUBIN TOTAL (BEAKER) (test goih=180) 0.2 mg/dL 0.2-1.2 BILIRUBIN DIRECT (BEAKER) (test moqp=154) 0.1 mg/dL 0.1-0.5 ALKALINE PHOSPHATASE (BEAKER) (test vndn=156) 83 U/L 40-150 AST (SGOT) (BEAKER) (test qbuj=357) 14 U/L 5-34 ALT (SGPT) (BEAKER) (test hgwo=390) 12 U/L 6-55 Specimen slightly ictericCBC W/PLT COUNT & AUTO [id number] 09:47 :00 Test Item Value Reference Range Comments WHITE BLOOD CELL COUNT (BEAKER) (test rdbi=973) 6.0 K/ L 4.0-10.0 RED BLOOD CELL COUNT (BEAKER) (test posu=244) 3.53 M/ L 4.20-5.80 HEMOGLOBIN (BEAKER) (test wcvm=807) 10.6 GM/DL 13.0-16.8 HEMATOCRIT (BEAKER) (test fhga=928) 31.3 % 40.0-50.0 MEAN CORPUSCULAR VOLUME (BEAKER) (test ybuf=461) 88.6 fL 82.0-98.0 MEAN CORPUSCULAR HEMOGLOBIN (BEAKER) (test 30.0 pg 27.0-33.0 slhy=335) MEAN CORPUSCULAR HEMOGLOBIN CONC (BEAKER) (test 33.9 GM/DL 32.0-36.0 aazd=991) RED CELL DISTRIBUTION WIDTH (BEAKER) (test 11.9 % 10.3-14.2 iggu=281) PLATELET COUNT (BEAKER) (test gtsl=676) 174 K/CU MM 150-430 MEAN PLATELET VOLUME (BEAKER) (test xzzr=502) 8.1 fL 6.5-10.5 NUCLEATED RED BLOOD CELLS (BEAKER) (test 0 /100 WBC 0-0 kjng=088) NEUTROPHILS RELATIVE PERCENT (BEAKER) (test 53 % nqqt=421) LYMPHOCYTES RELATIVE PERCENT (BEAKER) (test 37 % kenb=880) MONOCYTES RELATIVE PERCENT (BEAKER) (test 8 % zchk=333) EOSINOPHILS RELATIVE PERCENT (BEAKER) (test 2 % nwwa=406) BASOPHILS RELATIVE PERCENT (BEAKER) (test 0 % krhx=312) NEUTROPHILS ABSOLUTE COUNT (BEAKER) (test 3.18 K/ L 1.80-8.00 xvik=423) LYMPHOCYTES ABSOLUTE COUNT (BEAKER) (test 2.20 K/ L 1.48-4.50 dvkh=928) MONOCYTES ABSOLUTE COUNT (BEAKER) (test 0.47 K/ L 0.00-1.30 bngq=483) EOSINOPHILS ABSOLUTE COUNT (BEAKER) (test 0.10 K/ L 0.00-0.50 uzlx=087) BASOPHILS ABSOLUTE COUNT (BEAKER) (test 0.03 K/ L 0.00-0.20 zgzf=663) 0.00B-TYPE NATRIURETIC FACTOR (BNP)2016-10-19 09:41:00 Test Item Value Reference Range Comments B-TYPE NATRIURETIC PEPTIDE (BEAKER) (test 135 pg/mL 0-100 huva=741) SINUS CULTURE + GRAM [id number] 00:08:00 Test Item Value Reference Range Comments CULTURE (BEAKER) (test <1+ Normal respiratory desiree froa=0671) present GRAM STAIN RESULT (BEAKER) 1+ WBCs (test qiuq=1251) GRAM STAIN RESULT (BEAKER) No organisms seen (test kxmd=[id number])
--- OUTSIDE RECORDS SUMMARY | 2017-12-15 22:04 | XMS REPORT ---
:1945 [facility] Team Providers Name Role Phone Alonzo Elias Provider Role Unavailable Allergies, Adverse Reactions, Alerts Substance Reaction Event Type Flu vaccine Info Not Available Drug Allergy Metoprolol Info Not Available Drug Allergy Aspirin Info Not Available Drug Allergy Problems Problem Type Condition Code Onset Dates Condition Status Problem Deviated nasal septum J34.2 Active Problem Postnasal drip R09.82 Active Problem Allergic rhinitis, seasonal J30.2 Active Problem Hearing loss - Sensorineural H90.5 Active Asymmetrical Problem GERD K21.9 Active Problem Chronic laryngitis (LPRD) J37.0 Active Problem GERD K21.9 Active Problem Nasal congestion R09.81 Active Problem Cough R05 Active Problem Acute bronchitis due to Mycoplasma J20.0 Active pneumoniae Assessment Chronic laryngitis (LPRD) J37.0 Active Assessment Postnasal drip R09.82 Active Assessment GERD K21.9 Active Problem Dysphagia, oropharyngeal phase R13.12 Active Assessment Esophagitis K20.9 Active Problem Nasal Airway Obstruction R0 Active Assessment Cough R05 Active Problem Hypertrophy of nasal turbinates J34.3 Active Medications Medication Code Code Instructions Start End Status Dosage System Date Date Carafate [facility] 11515657462 1 GM Orally November Active 1 tablet times a day , , before 2017 2017 meals Flonase [facility] 27107180802 50 MCG/ACT b , Active 2 sprays Nasally Once a 2017 in each day at bedtime nostril NIFEdipine [facility] [address]-08 Active not defined Flonase ND 43918445562 50 MCG/ACT b 16, Active 2 sprays Nasally Once a 2016 in each day nostril Albuterol Sulfate [facility] [address]-13 Active not HFA defined Furosemide [facility] [address]-68 Active not defined Tamsulosin HCl [facility] [address]-16 Active not defined Coenzyme Q-10 [facility] [address]-31 Active not defined Astepro 0.15% [facility] 37447992986 0.15% SPRAY Oct 08, Active 2 sprays Nasally Once a 2017 in each day at bedtime nostril Dymista [facility] 10435722829 137-50 MCG/ACT Sep 27, Active 1 spray Nasally Once a 2016 in each day nostril Docusate Sodium [facility] [address]-10 Active not defined Penicillin V [facility] [address]-85 Active not Potassium defined Plavix [facility] [address]-26 Active not defined Dexilant [facility] 90402480051 60 MG Orally November Active 1 capsule Once a day 2017 Insulin Aspart [facility] [address]-25 Active not defined Insulin Glargine [facility] [address]-04 Active not defined Ipratropium [facility] 01605452702 0.03 % Nasally October Active 2 sprays [place] Three times a 23, in each day 2016 nostril as needed Zofran [facility] 49167684582 4 MG Orally Jul 09, Active 1 tablet Every 6 hours 2016 Azelastine & [facility] [address]-70 Active not Fluticasone defined Multivitamins [facility] 04[address]82 Active not defined Clopidogrel [facility] [address]-67 Active not Bisulfate defined Ranitidine HCl [facility] 54218610676 150 MG Orally Oct 01, Active 1 tablet Twice a day 2017 Clonidine HCl [facility] [address]-32 Active not defined Cholecalciferol [facility] [address] Active not defined Results No Known Results Summary Purpose eClinicalWorks Submission
--- OUTSIDE RECORDS SUMMARY | 2017-12-15 22:04 | XMS REPORT ---
:1945 Author Organization [employer] Care Team Providers Name Role Phone Alonzo Elias Provider Role Unavailable Allergies, Adverse Reactions, Alerts Substance Reaction Event Type Flu vaccine Info Not Available Drug Allergy Metoprolol Info Not Available Drug Allergy Aspirin Info Not Available Drug Allergy Problems Problem Type Condition Code Onset Dates Condition Status Problem Nasal Airway Obstruction R0 Active Problem Deviated nasal septum J34.2 Active Problem Hypertrophy of nasal turbinates J34.3 Active Problem Cough R05 Active Problem Acute bronchitis due to Mycoplasma J20.0 Active pneumoniae Problem GERD K21.9 Active Problem Postnasal drip R09.82 Active Problem Allergic rhinitis, seasonal J30.2 Active Problem GERD K21.9 Active Problem Nasal congestion R09.81 Active Assessment Esophagitis K20.9 Active Assessment Postnasal drip R09.82 Active Assessment GERD K21.9 Active Assessment Nasal airway obstruction J34.89 Active Assessment Nasal airway obstruction R09.81 Active Assessment Epistaxis R04.0 Active Assessment Hypertrophy of nasal turbinates J34.3 Active Problem Dysphagia, oropharyngeal phase R13.12 Active Medications Medication Code Code Instructions Start End Status Dosage System Date Date Carafate [facility] [id number] 1 GM Orally Oct 01October Active 1 tablet before 2017, before breakfast, 2017 meals before dinner Carafate [facility] 17633041524 1 GM Orally as Aug 08, Active 1 tablet directed 2017 30 minutes before meal and at bedtime Zofran [facility] 61365324112 4 MG Orally Jul 09, Active 1 tablet Every 6 hours 2016 NIFEdipine [facility] [address]-60 Active not defined Clopidogrel [facility] [address]-29 Active not Bisulfate defined Multivitamins [facility] 64766-[address]69 Active not defined Ranitidine HCl [facility] 39929512956 150 MG Orally Oct 01, Active 1 tablet Twice a day 2017 Plavix [facility] [address]-65 Active not defined Ipratropium [facility] 77074086791 0.03 % Nasally October Active 2 sprays [place] Three times a 23, in each day 2017 nostril as needed Docusate Sodium [facility] [address]-77 Active not defined Albuterol Sulfate [facility] [address]-35 Active not HFA defined Insulin Glargine [facility] [address]-17 Active not defined Tamsulosin HCl [facility] [address]-51 Active not defined Penicillin V [facility] [address]-93 Active not Potassium defined Azelastine & [facility] [address]-76 Active not Fluticasone defined Dymista [facility] 98616566373 137-50 MCG/ACT Sep 27, Active 1 spray Nasally Once a 2016 in each day nostril Flonase [facility] 10480411320 50 MCG/ACT Sep 27, Active 2 sprays Nasally Once a 2016 in each day nostril Cholecalciferol [facility] 0 Active not defined Coenzyme Q-10 [facility] [address]-85 Active not defined Furosemide [facility] [address]-47 Active not defined Clonidine HCl [facility] [address]-47 Active not defined Insulin Aspart [facility] [address]-96 Active not defined Results No Known Results Summary Purpose eClinicalWorks Submission
[2017-12-15] MEDS ORDERED: PROMETHAZINE 25 MG/ML VIAL ONE (22:34)
[2017-12-15] MEDS ORDERED: NA CHLORIDE 0.9% 250 ML ONE (22:35)
[2017-12-15] MEDS ORDERED: NA CHLORIDE 0.9% 1,000 ML ONE (22:35)
[2017-12-15 22:56] LABS: Absolute Lymphocytes (CBC) 1.1 K/uL (0.7-4.9); Absolute Monocytes 0.7 K/uL (0.1-1.3); Basophils % 0.3 % (0-1.3); Eosinophils % 0.8 % (0-4.4); Hematocrit 29.8 % (39.6-49.0); Lymphocytes % 10.3 % (15.3-44.8); MCH 29.4 pg (27.0-35.0); MCV 84.6 fL (80-100); MPV 9.1 fL (7.6-11.3); RBC Red Blood Cell Count 3.52 M/uL (4.33-5.43)
[2017-12-15 23:09] LABS: Bicarbonate 26 mEq/L (21-31); Glucose Level 198 mg/dL (65-120); Lipase 41 U/L (22-51); Potassium 3.6 mEq/L (3.6-5.0); Sodium Level 138 mEq/L (135-145)
[2017-12-15 23:15] LABS: ALT/SGPT 15 IU/L (10-60); AST/SGOT 23 IU/L (10-42); Albumin 3.9 g/dL (3.2-5.5); Alkaline Phosphatase 70 IU/L (42-121); Amylase Level 75 U/L (28-100); BUN Blood Urea Nitrogen 48 mg/dL (6-20); Bilirubin Direct < 0.1 mg/dL (0-0.2); Bilirubin Total 0.4 mg/dL (0.3-1.2); Protein, Total 6.4 g/dL (6.0-8.3)
[2017-12-15 23:26] LABS: Urine Blood NEGATIVE (NEG); Urine Glucose TRACE (NEG); Urine Protein 3+ (NEG)
[2017-12-15 23:38] LABS: Urine Bacteria NONE SEEN /HPF (NONE SEEN); Urine Culture Reflex Order NOT NEEDED; Urine RBC <5 /HPF (NONE SEEN)
[2017-12-15] MEDS ORDERED: ONDANSETRON 4 MG/2 ML VIAL ONE (23:39)
[2017-12-15] MEDS ORDERED: PANTOPRAZOLE 40 MG INJ ONE (23:45)
[2017-12-16] MEDS ORDERED: LORazepam 2 MG/ML VIAL ONE (00:21)
--- NOTE | 2017-12-16 00:36 | ER ---
Nurse's Notes [facility] Name: Huseyin Sampson Age: 72 yrs Sex: Male : 1945 Arrival Date: 12/15/2017 Time: 22:05 Bed 20 Private MD: Diagnosis: Vomiting-intractable;Chronic renal insufficiency Presentation: 12/15 22:10 Presenting complaint: Patient states: that since 1600 today he has vomited approx 6 fc times. Having esophageal pain. Concerned due to nausea and vomiting not getting any better. Transition of care: patient was not received from another setting of care. Onset of symptoms was December 15, 2017 at 16:00. Initial Sepsis Screen: Does the patient meet any 2 criteria? No. Patient's initial sepsis screen is negative. Does the patient have a suspected source of infection? No. Patient's initial sepsis screen is negative. Care prior to arrival: Medication(s) given: zofran this am. 22:10 Method Of Arrival: Ambulatory 22:10 Acuity: LARA 3 fc Historical: - Allergies: 22:16 Aspirin; fc 22:16 Beta-Blockers (Beta-Adrenergic Blocking Agts); fc 22:16 FISH PRODUCT DERIVATIVES; fc 22:16 FLU VACCINE; fc - Home Meds: 22:16 Zofran (as hydrochloride) 4 mg Oral tab as needed [Active]; Dexilant 60 mg oral CpDB 1 fc cap once daily [Active]; clonidine HCl 0.1 mg Oral tab 1 tab 3 times per day [Active]; clopidogrel 75 mg Oral tab 1 tab once daily [Active]; Miralax 17 gram Oral pwpk 1 packet once daily [Active]; Lantus 100 unit/mL Sub-Q soln depending on bs [Active]; Victoza 2-Je 0.6 mg/0.1 mL (18 mg/3 mL) subcutaneous pnij 0.2 mL once daily [Active]; Lasix 80 mg Oral tab 1 tab 2 times per day [Active]; nifedipine 60 mg tid and 90 mg once a day (dinner time) Oral tr24 [Active]; metolazone 2.5 mg Oral tab 1 tab once a week [Active]; hydralazine 100 mg Oral tab 1 tab 4 times per day [Active]; - PMHx: 22:16 Diabetes - NIDDM; Gout; Hypertension; Pacemaker; Renal Disease; fc - PSHx: 22:16 Pacemaker; Aortic Valve replacement; fc - Immunization history:: Last tetanus immunization: unknown. - Social history:: Smoking status: Patient/guardian denies using tobacco. Screenin:53 Abuse screen: Denies threats or abuse. Denies injuries from another. Nutritional mg2 screening: No deficits noted. Tuberculosis screening: No symptoms or risk factors identified. Fall Risk IV access (20 points). Assessment: 22:50 General: Appears in no apparent distress. comfortable, Behavior is calm, cooperative. mg2 Pain: Complains of pain in chest Pain does not radiate. Pain currently is 5 out of 10 on a pain scale. Quality of pain is described as burning, Pain began gradually, Is intermittent, Aggravated by vomiting. Neuro: Level of Consciousness is awake, alert, obeys commands, Oriented to person, place, time. Cardiovascular: Capillary refill < 3 seconds Patient's skin is warm and dry. Respiratory: Airway is patent Respiratory effort is even, unlabored, Respiratory pattern is regular, symmetrical. GI: Abdomen is flat, non-distended, Reports vomiting, since this 8 pm 6-7 times today. EENT: No signs and/or symptoms were reported regarding the EENT system. Derm: Skin is intact, Skin is pink, warm \T\ dry. normal. Musculoskeletal: No signs and/or symptoms reported regarding the musculoskeletal system. 12/16 00:25 Reassessment: Patient and/or family updated on plan of care and expected duration. Pain mg2 level reassessed. Patient is alert, oriented x 3, equal unlabored respirations, skin warm/dry/pink. patient vomited several times. provider made aware. 00:40 Reassessment: patient is for admission. mg2 01:32 Reassessment: Patient appears in no apparent distress at this time. Patient and/or mg2 family updated on plan of care and expected duration. Pain level reassessed. Patient is alert, oriented x 3, equal unlabored respirations, skin warm/dry/pink. dr. camacho came and assessed the patient. sent for ct. Vital Signs: 12/15 22:16 BP 210 / 77; Pulse 81; Resp 18; Temp 99.2(O); Pulse Ox 97% on R/A; Weight 95.71 kg (R); fc Height 5 ft. 10 in. (177.80 cm) (R); Pain 4/10; 23:14 BP 180 / 56; Pulse 89; Resp 18; Pulse Ox 96% on R/A; aa1 12/16 00:36 BP 167 / 114; Pulse 89; Resp 18; Temp 99.2; Pulse Ox 95% on R/A; mg2 02:12 BP 184 / 150; Pulse 81; Resp 18; Pulse Ox 96% on R/A; Pain 5/10; mg2 02:43 BP 167 / 76; Pulse 81; Resp 18; Pulse Ox 100% on R/A; Pain 3/10; mg2 12/15 22:16 Body Mass Index 30.28 (95.71 kg, 177.80 cm) ED Course: 12/15 22:05 Patient arrived in ED. al2 22:11 Triage completed. fc 22:16 Angela Polanco FNP-C is PHCP. snw 22:16 Brandy Stephenson MD is Attending Physician. snw 22:16 Arm band placed on Patient placed in an exam room, on a stretcher. fc 22:21 Dereje Randolph, XOCHITL is Primary Nurse. mg2 22:54 Patient has correct armband on for positive identification. Placed in gown. Bed in low mg2 position. Call light in reach. Door closed. Warm blanket given. 22:54 Inserted saline lock: 20 gauge in right antecubital area, using aseptic technique. mg2 12/16 00:33 Jaime Arnold MD is Hospitalizing Provider. snw 02:40 No provider procedures requiring assistance completed. Patient admitted, IV remains in mg2 place. Administered Medications: 12/15 22:49 Drug: Phenergan 25 mg Route: IVP; Site: right antecubital; mg2 23:50 Follow up: Response: No adverse reaction; Vomiting unchanged mg2 22:49 Drug: NS 0.9% 250 ml Route: IV; Rate: calculated rate; Site: right antecubital; mg2 23:10 Follow up: Response: No adverse reaction; IV Status: Completed infusion mg2 23:25 Drug: NS 0.9% 1000 ml Route: IV; Rate: 125 ml/hr; Site: right antecubital; mg2 23:42 Drug: Zofran 8 mg Route: IVP; Site: right antecubital; mg2 12/16 00:33 Follow up: Response: No adverse reaction; Vomiting unchanged mg2 12/15 23:43 Drug: NS 0.9% 500 ml Route: IV; Rate: bolus; Site: right antecubital; mg2 23:56 Drug: ProTONIX 40 mg Route: IVP; Site: right antecubital; mg2 12/16 00:41 Follow up: Response: No adverse reaction; Pain is decreased mg2 00:33 Drug: Ativan 1 mg Route: IVP; Site: right antecubital; mg2 Outcome: 00:35 Decision to Hospitalize by Provider. snw 02:43 Admitted to Med/surg accompanied by nurse, via wheelchair, Report called to patrick mg2 02:43 Condition: stable 02:43 Instructed on the need for admit, Demonstrated understanding of instructions. 02:44 Patient left the ED. mg2 Signatures: Vicki Fox RN RN aa1 Angela Polanco, P[employer]-C [employer]-Csnw Elzbieta Leal RN RN Samira Farmer Michele, RN RN mg2 Corrections: (The following items were deleted from the chart) 12/15 22:12 22:10 Care prior to arrival: None. [facility] 12/16 00:41 00:36 BP 167 / 114; Pulse 89bpm; Resp 18bpm; Pulse Ox 95% RA; mg2 mg2
--- NOTE | 2017-12-16 00:36 | EDPHYS ---
Physician Documentation [facility] Name: Huseyin Sampson Age: 72 yrs Sex: Male : 1945 Arrival Date: 12/15/2017 Time: 22:05 Bed 20 Private MD: ED Physician Brandy Stephenson HPI: 12/15 22:31 This 72 yrs old Male presents to ER via Ambulatory with complaints of snw Vomiting, Fever. 22:31 The patient presents to the emergency department with nausea, vomiting. Onset: The snw symptoms/episode began/occurred suddenly, today, and became persistent. Possible causes: esophagitis, being tx per Dr. Elias. Taking Dexilant. Pt states he has been on bland diet. Had some veal parm tonight and began vomiting. Fever to 100.0. Associated signs and symptoms: The patient has no apparent associated signs or symptoms. Severity of symptoms: At their worst the symptoms were moderate. The patient has not experienced similar symptoms in the past. pt with hx of chronic renal insufficiency . Historical: - Allergies: 22:16 Aspirin; fc 22:16 Beta-Blockers (Beta-Adrenergic Blocking Agts); fc 22:16 FISH PRODUCT DERIVATIVES; fc 22:16 FLU VACCINE; fc - Home Meds: 22:16 Zofran (as hydrochloride) 4 mg Oral tab as needed [Active]; Dexilant 60 mg oral CpDB 1 fc cap once daily [Active]; clonidine HCl 0.1 mg Oral tab 1 tab 3 times per day [Active]; clopidogrel 75 mg Oral tab 1 tab once daily [Active]; Miralax 17 gram Oral pwpk 1 packet once daily [Active]; Lantus 100 unit/mL Sub-Q soln depending on bs [Active]; Victoza 2-Je 0.6 mg/0.1 mL (18 mg/3 mL) subcutaneous pnij 0.2 mL once daily [Active]; Lasix 80 mg Oral tab 1 tab 2 times per day [Active]; nifedipine 60 mg tid and 90 mg once a day (dinner time) Oral tr24 [Active]; metolazone 2.5 mg Oral tab 1 tab once a week [Active]; hydralazine 100 mg Oral tab 1 tab 4 times per day [Active]; - PMHx: 22:16 Diabetes - NIDDM; Gout; Hypertension; Pacemaker; Renal Disease; fc - PSHx: 22:16 Pacemaker; Aortic Valve replacement; fc - Immunization history:: Last tetanus immunization: unknown. - Social history:: Smoking status: Patient/guardian denies using tobacco. ROS: 22:31 Constitutional: Negative for fever, chills, and weight loss, Eyes: Negative for injury, snw pain, redness, and discharge, ENT: Negative for injury, pain, and discharge, Neck: Negative for injury, pain, and swelling, Cardiovascular: Negative for chest pain, palpitations, and edema, Respiratory: Negative for shortness of breath, cough, wheezing, and pleuritic chest pain. 22:31 Back: Negative for injury and pain, : Negative for injury, bleeding, discharge, and swelling, MS/Extremity: Negative for injury and deformity, Skin: Negative for injury, rash, and discoloration, Neuro: Negative for headache, weakness, numbness, tingling, and seizure. 22:31 Abdomen/GI: Positive for vomiting. Exam: 22:30 Constitutional: This is a well developed, well nourished patient who is awake, alert, snw and in no acute distress. Head/Face: Normocephalic, atraumatic. Eyes: Pupils equal round and reactive to light, extra-ocular motions intact. Lids and lashes normal. Conjunctiva and sclera are non-icteric and not injected. Cornea within normal limits. Periorbital areas with no swelling, redness, or edema. ENT: Nares patent. No nasal discharge, no septal abnormalities noted. Tympanic membranes are normal and external auditory canals are clear. Oropharynx with no redness, swelling, or masses, exudates, or evidence of obstruction, uvula midline. Mucous membranes moist. Neck: Trachea midline, no thyromegaly or masses palpated, and no cervical lymphadenopathy. Supple, full range of motion without nuchal rigidity, or vertebral point tenderness. No Meningismus. Chest/axilla: Normal chest wall appearance and motion. Nontender with no deformity. No lesions are appreciated. 22:30 Respiratory: Lungs have equal breath sounds bilaterally, clear to auscultation and percussion. No rales, rhonchi or wheezes noted. No increased work of breathing, no retractions or nasal flaring. Back: No spinal tenderness. No costovertebral tenderness. Full range of motion. Skin: Warm, dry with normal turgor. Normal color with no rashes, no lesions, and no evidence of cellulitis. MS/ Extremity: Pulses equal, no cyanosis. Neurovascular intact. Full, normal range of motion. Neuro: Awake and alert, GCS 15, oriented to person, place, time, and situation. Cranial nerves II-XII grossly intact. Motor strength 5/5 in all extremities. Sensory grossly intact. Cerebellar exam normal. Normal gait. 22:30 Cardiovascular: Rate: normal, Heart sounds: murmur, grade 3 over 6. 22:30 Abdomen/GI: Inspection: distension, Bowel sounds: diminished, Palpation: abdomen is soft and non-tender, in all quadrants. Vital Signs: 22:16 BP 210 / 77; Pulse 81; Resp 18; Temp 99.2(O); Pulse Ox 97% on R/A; Weight 95.71 kg (R); fc Height 5 ft. 10 in. (177.80 cm) (R); Pain 4/10; 23:14 BP 180 / 56; Pulse 89; Resp 18; Pulse Ox 96% on R/A; aa1 12/16 00:36 BP 167 / 114; Pulse 89; Resp 18; Temp 99.2; Pulse Ox 95% on R/A; mg2 02:12 BP 184 / 150; Pulse 81; Resp 18; Pulse Ox 96% on R/A; Pain 5/10; mg2 02:43 BP 167 / 76; Pulse 81; Resp 18; Pulse Ox 100% on R/A; Pain 3/10; mg2 12/15 22:16 Body Mass Index 30.28 (95.71 kg, 177.80 cm) fc MDM: 12/15 22:17 Patient medically screened. snw 12/16 00:35 Data reviewed: vital signs, nurses notes. Data interpreted: Pulse oximetry: on room air snw is 96 %. Interpretation: normal. Counseling: I had a detailed discussion with the patient and/or guardian regarding: the historical points, exam findings, and any diagnostic results supporting the discharge/admit diagnosis, the presence of at least one elevated blood pressure reading (>120/80) during this emergency department visit, lab results, the need for further work-up and treatment in the hospital. Physician consultation: Jaime Arnold MD was called at 00:36, was contacted at 00:36, regarding admission, to the telemetry unit. 12/15 22:30 Order name: Amylase, Serum snw 12/15 22:30 Order name: Basic Metabolic Panel; Complete Time: 23:38 snw 12/15 22:30 Order name: CBC with Diff; Complete Time: 23:08 snw 12/15 22:30 Order name: Hepatic Function; Complete Time: 23:38 snw 12/15 22:30 Order name: Lipase; Complete Time: 23:38 snw 12/15 22:30 Order name: Urine Microscopic Only; Complete Time: 23:39 snw 12/15 22:30 Order name: Amylase Level; Complete Time: 23:38 EDMS 12/15 23:20 Order name: Urine Dipstick--Ancillary (enter results); Complete Time: 23:38 em1 12/16 01:21 Order name: CT Abd/Pelvis - Without Cont snw 12/15 22:30 Order name: IV Saline Lock; Complete Time: 22:55 snw 12/15 22:30 Order name: Labs collected and sent; Complete Time: 22:55 snw 12/15 22:30 Order name: Urine Dipstick-Ancillary (obtain specimen); Complete Time: 23:19 snw Administered Medications: 12/15 22:49 Drug: Phenergan 25 mg Route: IVP; Site: right antecubital; mg2 23:50 Follow up: Response: No adverse reaction; Vomiting unchanged mg2 22:49 Drug: NS 0.9% 250 ml Route: IV; Rate: calculated rate; Site: right antecubital; mg2 23:10 Follow up: Response: No adverse reaction; IV Status: Completed infusion mg2 23:25 Drug: NS 0.9% 1000 ml Route: IV; Rate: 125 ml/hr; Site: right antecubital; mg2 23:42 Drug: Zofran 8 mg Route: IVP; Site: right antecubital; mg2 12/16 00:33 Follow up: Response: No adverse reaction; Vomiting unchanged mg2 12/15 23:43 Drug: NS 0.9% 500 ml Route: IV; Rate: bolus; Site: right antecubital; mg2 23:56 Drug: ProTONIX 40 mg Route: IVP; Site: right antecubital; mg2 12/16 00:41 Follow up: Response: No adverse reaction; Pain is decreased mg2 00:33 Drug: Ativan 1 mg Route: IVP; Site: right antecubital; mg2 Disposition: 03:42 Co-signature as Attending Physician, Brandy Stephenson MD. ma2 03:42 Co-signature as Attending Physician, Brandy Stephenson MD. ma2 Disposition: 12/16/17 00:35 Hospitalization ordered by Jaime Arnold for Observation. Preliminary diagnosis are Vomiting - intractable, Chronic renal insufficiency. - Bed requested for Telemetry/MedSurg (observation). - Status is Observation. mg2 - Condition is Stable. - Problem is an ongoing problem. - Symptoms have worsened. UTI on Admission? No Signatures: Dispatcher [employer] EDMS Ruth Ann Chester, RN RN Angela Cordoba, TERESA-C SCRAP BALER-Elzbieta Montero RN RN fc Alzahri, Mohammad, MD MD ma2 [place], Michele, RN RN mg2 Corrections: (The following items were deleted from the chart) 01:55 00:35 Hospitalization Ordered by Jaime Arnold MD for Observation. Preliminary kl diagnosis is Vomiting - intractable; Chronic renal insufficiency. Bed requested for Telemetry/MedSurg (observation). Status is Observation. Condition is Stable. Problem is an ongoing problem. Symptoms have worsened. UTI on Admission? No. snw 02:44 01:55 12/16/2017 00:35 Hospitalization Ordered by Jaime Arnold MD for Observation. mg2 Preliminary diagnosis is Vomiting - intractable; Chronic renal insufficiency. Bed requested for Telemetry/MedSurg (observation). Status is Observation. Condition is Stable. Problem is an ongoing problem. Symptoms have worsened. UTI on Admission? No. kl
--- NOTE | 2017-12-16 02:01 | P.HP ---
Certification for Inpatient Patient admitted to: Observation With expected LOS: <2 Midnights Practitioner: I am a practitioner with admitting privileges, knowledge of patient current condition, hospital course, and medical plan of care. Services: Services provided to patient in accordance with Admission requirements found in Title 42 Section 412.3 of the Code of Federal Regulations Patient History Date of Service: 12/16/17 Reason for admission: intractable vomiting History of Present Illness: Mr Sampson is a 72 years old male with history of DM II, CKD, HTN, who was recently diagnosed with esophagitis, on treatment with PPI's, he was placed on a bland diet. After he has dinner, start vomiting persistently. He denied any abdominal pain. Last time he had a bowel movement was tonight, he had fever 100.0F. He denied chest pain or SOB. In ER he was treated with several antiemetic without improving his symptoms. After receive phenergam, he had a diskintic reaction. Lab work remarkable for normal WBC count, elevated creatinine, possible slightly above his baseline. CT abd/pelvis consistent with colitis. Allergies Aspirin Allergy (Uncoded 09/28/17 16:37) Unknown Beta-Blockers (B Allergy (Uncoded 09/28/17 16:37) Unknown Beta-Blockers (Beta-Adrenergic Allergy (Uncoded 09/28/17 16:37) Unknown FISH PRODUC Allergy (Uncoded 09/28/17 16:37) Unknown FISH PRODUCT DERI Allergy (Uncoded 09/28/17 16:37) Unknown flu vaccine Allergy (Uncoded 09/28/17 16:37) Unknown Home Medications: Cholecalciferol (Vitamin D3) [Vitamin D3] 2,000 unit PO DAILY 09/28/17 Clopidogrel Bisulfate [Plavix*] 1 tab PO DAILY 09/28/17 Gemfibrozil [Lopid*] 600 mg PO BID 09/28/17 Hydralazine HCl [Apresoline] 100 mg PO QID 09/28/17 Insulin Glargine,Hum.rec.anlog [Lantus] 15 - 40 units SQ BEDTIME 09/28/17 Liraglutide [Victoza 2-Je] 1.8 mg SQ DAILY 09/28/17 Metolazone [Zaroxolyn*] 2.5 mg PO EVERY 7TH DAY 09/28/17 Nifedipine [Adalat cc] 60 mg PO TID 09/28/17 Nifedipine [Procardia Xl] 90 mg PO DAILY AFTER SUPPER 09/28/17 Resveratrol 600 mg PO BID 09/28/17 Tamsulosin [Flomax*] 1 tab PO DAILY 09/28/17 Temazepam 15 mg PO DAILYPRN PRN 09/28/17 Clonidine HCl [Catapres*] 0.3 mg PO TID #90 tablet 09/30/17 Doxazosin [Cardura*] 1 mg PO BID #30 tab 09/30/17 Levofloxacin [Levaquin] 250 mg PO DAILY #5 tab 09/30/17 Oseltamivir [Tamiflu*] 75 mg PO BID #7 cap 09/30/17 - Past Medical/Surgical History Diabetic: Yes -: HTN -: Diabetes-Type 2 -: Chronic kidney disease -: Enlarge Prostate -: CHF -: Gout -: Low Heart rate- have Pace maker now 09/2016 -: Cataracts -: Pacemaker placement in 2017 -: cataract sx - Family History Father -: Hypertension Mother -: Lung disease - Social History Smoking Status: Never smoker Alcohol use: No CD- Drugs: No Caffeine use: No Place of Residence: Home Review of Systems 10-point ROS is otherwise unremarkable Physical Examination - Physical Exam General: Alert, Mild distress (due to persistent vomiting.) HEENT: Atraumatic, PERRLA, Mucous membr. moist/pink, EOMI, Sclerae nonicteric Neck: Supple, 2+ carotid pulse no bruit, No LAD, Without JVD or thyroid abnormality Respiratory: Clear to auscultation bilaterally, Normal air movement Cardiovascular: Regular rate/rhythm, Normal S1 S2 Gastrointestinal: Normal bowel sounds, No tenderness Musculoskeletal: No tenderness Integumentary: No rashes Neurological: Normal speech, Normal strength at 5/5 x4 extr, Normal tone, Normal affect Lymphatics: No axilla or inguinal lymphadenopathy - Studies Laboratory Data (last 24 hrs) 12/15/17 22:45: WBC 10.9, Hgb 10.4 L, Hct 29.8 L, Plt Count 268 12/15/17 22:45: Sodium 138, Potassium 3.6, BUN 48 H, Creatinine 2.89 H, Glucose 198 H, Total Bilirubin 0.4, AST 23, ALT 15, Alkaline Phosphatase 70, Amylase 75 , Lipase 41 Assessment and Plan - Problems (Diagnosis) (1) Diabetes mellitus Current Visit: Yes Status: Acute Qualifiers: Diabetes mellitus type: type 2 Diabetes mellitus half-way insulin use: with authors motivational use Diabetes mellitus complication status: with unspecified complications Qualified Code(s): E11.8 - Type 2 diabetes mellitus with unspecified complications; Z79.4 - jail (current) use of insulin (2) Colitis Current Visit: Yes Status: Acute (3) Nausea and vomiting Current Visit: Yes Status: Acute Qualifiers: Vomiting type: unspecified Vomiting Intractability: intractable Qualified Code(s): R11.2 - Nausea with vomiting, unspecified (4) HTN (hypertension) Onset Date: 09/30/17 Current Visit: No Status: Chronic Qualifiers: Hypertension type: essential hypertension Qualified Code(s): I10 - Essential (primary) hypertension - Plan Mr Sampson will be admitted to the hospital due to intractable vomiting. CT abd/pelvis consistent with colitis. Will start empiric antibiotic treatment, consult GI, continue IV fluids and symptomatic medication. Will keep NPO until symptoms improves. - Advance Directives Does patient have a Living Will: No Does patient have a Durable POA for Healthcare: No - Code Status/Comfort Care Code Status Assessed: Yes Code Status: Full Code
[2017-12-16] MEDS: NA CHLORIDE 0.9% 1,000 ML IV SCH ×3 (02:12→21:32)
[2017-12-16] MEDS: METRONIDAZOLE 500mg IVPB 500 MG/100 ML BAG IV SCH ×3 (02:58→16:52)
[2017-12-16 03:00] VITALS: BMI 30.9
[2017-12-16] MEDS ORDERED: ACETAMINOPHEN 500 MG TAB PO PRN (04:20)
[2017-12-16] MEDS: ONDANSETRON 4 MG/2 ML VIAL IV PRN ×3 (04:48→19:10)
[2017-12-16 06:21] LABS: Potassium 3.8 mEq/L (3.6-5.0)
[2017-12-16] MEDS ORDERED: GLUCAGON 1 MG/VIAL IM PRN (06:28)
[2017-12-16] MEDS ORDERED: D50W 25 GM/50 ML SYRINGE IV PRN (06:28)
[2017-12-16] MEDS: INSULIN -REGULAR HUMAN 50 UNIT/0.5 ML ML SQ SCH ×3 (06:52→18:19)
--- NOTE | 2017-12-16 08:12 | RAD REPORT ---
EXAM DESCRIPTION: CT - Abdomen Pelvis Wo Contrast - 12/16/2017 6:49 am CLINICAL HISTORY: Abdominal pain vomiting since this afternoon. COMPARISON: None TECHNIQUE: Computed axial tomography of the abdomen and pelvis was obtained. IV was not requested. O ral contrast was given. Coronal reconstructions performed. A preliminary report was generated by [facility] and reviewed prior to dictation All CT scans are performed using dose optimization technique as appropriate and may include automated exposure control or mA/KV adjustment according to patient size. FINDINGS: The evaluation of solid organs and vessels is limited secondary to the lack of contrast a dministration. The liver, spleen, pancreas, adrenals and left kidney appear grossly normal. A small low-density mass extending off of the right kidney probably represents a cyst. The appendix is normal. The wall of portion of the descending colon is moderately thickened. The prostate gland is moderately to markedly enlarged. IMPRESSION: Moderate descending colitis
[2017-12-16] MEDS: CIPROFLOXACIN 400mg IV 400 MG/200 ML BAG IV SCH (08:57)
[2017-12-16] MEDS ORDERED: SCOPOLAMINE HYDROBROMIDE PATCH TD SCH (09:00)
[2017-12-16] MEDS ORDERED: ALBUTEROL INHALER 60 PUFF/8 GM IH PRN (11:57)
[2017-12-16] MEDS ORDERED: ALBUTEROL 2.5 MG/3 ML NEB SOL ONE (12:19)
[2017-12-16] MEDS: HYDRALAZINE HCL 25 MG TABLET PO SCH ×3 (13:18→21:25)
[2017-12-16] MEDS ORDERED: cloNIDine HCl 0.1 MG TAB PO SCH (14:00)
[2017-12-16] MEDS ORDERED: CLONIDINE HCL 0.3 MG TAB PO SCH (14:00)
[2017-12-16] MEDS ORDERED: NIFEDIPINE XL 90 MG TABLET PO SCH (17:30)
[2017-12-16] MEDS: ALBUTEROL 2.5 MG/3 ML NEB SOL NEB SCH (20:00)
[2017-12-16] MEDS: RESVERATROL PO SCH (21:00)
[2017-12-16] MEDS: DOXAZOSIN 2 MG TAB PO SCH (21:23)
[2017-12-16] MEDS: NIFEDIPINE XL 60 MG TABLET PO SCH (21:24)
[2017-12-16] MEDS: GEMFIBROZIL 600 MG TAB PO SCH (21:24)
[2017-12-16] MEDS: cloNIDine HCl 0.1 MG TAB PO SCH (21:25)
[2017-12-17] MEDS: INSULIN -REGULAR HUMAN 50 UNIT/0.5 ML ML SQ SCH ×3 (00:50→12:00)
[2017-12-17] MEDS: METRONIDAZOLE 500mg IVPB 500 MG/100 ML BAG IV SCH ×2 (00:54→09:04)
[2017-12-17] MEDS: ALBUTEROL 2.5 MG/3 ML NEB SOL NEB SCH ×3 (01:05→13:57)
[2017-12-17] MEDS: ONDANSETRON 4 MG/2 ML VIAL IV PRN ×3 (01:13→14:39)
[2017-12-17 05:08] LABS: Absolute Lymphocytes (CBC) 1.2 K/uL (0.7-4.9); Absolute Monocytes 1.1 K/uL (0.1-1.3); Absolute Neutrophil 13.5 K/uL (1.8-8.0); Basophils % 0.4 % (0-1.3); Lymphocytes % 7.6 % (15.3-44.8); MCH 28.3 pg (27.0-35.0); MCV 87.3 fL (80-100); MPV 9.6 fL (7.6-11.3); Monocytes % 6.7 % (3.3-12.3)
[2017-12-17 05:20] LABS: Potassium 3.8 mEq/L (3.6-5.0)
[2017-12-17 05:36] LABS: Blood Morphology Comment NOTED (NOT SEEN); Platelet Estimate ADEQ
[2017-12-17] MEDS: NA CHLORIDE 0.9% 1,000 ML IV SCH (07:07)
[2017-12-17] MEDS ORDERED: CLOPIDOGREL 75 MG TABLET PO SCH (09:00)
[2017-12-17] MEDS: GEMFIBROZIL 600 MG TAB PO SCH (09:00)
[2017-12-17] MEDS ORDERED: TAMSULOSIN 0.4 MG SR CAP PO SCH (09:00)
[2017-12-17] MEDS ORDERED: METOLAZONE 2.5 MG TABLET PO SCH (09:00)
[2017-12-17] MEDS: RESVERATROL PO SCH (09:00)
[2017-12-17] MEDS ORDERED: VITAMIN D 1000 UNIT TAB PO SCH (09:00)
[2017-12-17] MEDS: DOXAZOSIN 2 MG TAB PO SCH (09:02)
[2017-12-17] MEDS: NIFEDIPINE XL 60 MG TABLET PO SCH ×2 (09:02→14:34)
[2017-12-17] MEDS: cloNIDine HCl 0.1 MG TAB PO SCH ×2 (09:02→14:34)
[2017-12-17] MEDS: HYDRALAZINE HCL 25 MG TABLET PO SCH ×2 (09:02→12:23)
[2017-12-17] MEDS ORDERED: FUROSEMIDE 20 MG/ 2ML VIAL IV ONE (09:48)
[2017-12-17 09:51] VITALS: O2SAT 94
[2017-12-17] MEDS: CIPROFLOXACIN 400mg IV 400 MG/200 ML BAG IV SCH (10:36)
[2017-12-17 16:51] VITALS: BP 182/83; TEMP 99.8
--- NOTE | 2017-12-17 22:12 | CON ---
Date of Consultation: 12/16/2017 Reason For Consultation: Abnormal CT scan and colitis. History Of Present Illness: Mr. Mitchell is a 72-year-old gentleman with a sort of eventful histor y related to his upper GI tract in the way of severe heartburn, retrosternal pain, chest pain, nausea , vomiting. He also has history of diabetes, chronic renal failure, and hypertension. He has a phys ician friend in [place] where he is normally cared for. Apparently, initially he was treated with sainz cralfate. Once sucralfate failed, he had either endoscopy or upper GI barium swallow. Based on this reflux that was diagnosed, he was put on Dexilant. However, the patient had severe nausea, vomiting , and recurrent abdominal pain. Since then, he has been short of breath and came to the hospital. A s part of the hospital workup, CT showed colitis among other things. At this time, his main complaint is shortness of breath of which is obviously suffering from. Past Medical History: As elaborated above in addition to hypertension. Past Surgical History: Not related to above. Family History: Denies any gastrointestinal malignancies in the family. Social History: Only social alcohol. No tobacco. Psychiatric History: None. Allergies: REVIEWED IN THE CHART. Medications: Reviewed in the chart. Review of Systems: General: Positive chills. No documented fever. No recent weight loss or weight gain. GI: As elaborated above. Pulmonary: Positive for shortness of breath. Positive for cough without expectoration. Cardiac: Positive orthopnea and dyspnea and shortness of breath. Genitourinary: No dysuria. No frequency. Musculoskeletal: No arthralgia or myalgia. Some stiffness in the morning. However this is chronic problem. GI: As elaborated above. Hepatologic: Denies any history of jaundice, hepatitis, or any other lymphoreticular disease. Musculoskeletal: As above. Dermatologic: No pruritus. No skin rash. Physical Examination: General: Elderly male, however appears to be apparently short of breath. Hemodynamic respiratory pr ofile although within normal range. HEENT: Atraumatic, normocephalic. No pallor. No icterus. No temporal wasting. No facial wasting. Oropharynx is clear. Neck: Supple. No lymphadenopathy. Trachea central in position. Chest: Bilaterally air exchange is good, but bilateral wheeze and crackles or heard more on the righ t side than on the left side. Heart: S1-S2 is accentuated. No S3, no S4. Abdomen: Soft, nontender, nondistended. Excellent bowel sounds present in all quadrant. No engorge ment, no hepatomegaly, no splenomegaly. No succussion splash. Extremities: Upper and lower extremities are normal and symmetrical. Dermatologic: Normal grossly speaking. Neurological: Alert and oriented x3. Intact memory, mentation, and judgment. Can move all parts of his extremities without any other problem. Diagnostic Data: CT as elaborated above. White cell count is 10. Hemoglobin and hematocrit are 10 and 29 respectively. BUN and creatinine are elevated. Impression, Plan, And Recommendation: Mr. Mitchell is a 72-year-old gentleman with nausea and vomi ting. CT scan finding of colitis. He also has diabetes, hypertension, nausea, and vomiting. The reason for his nausea, vomiting, and abdominal pain is not clear at this time. However, this is not a clear symptomatology at this time. The patient denies any other symptoms related to colitis. In addition to that, he has diabetes and chronic renal disease. I am unable to say whether this is a n acute dysfunction or chronic dysfunction. Given above, other etiologies of his nausea, vomiting, a nd GERD related symptoms have to be sought for. He is already on a very adequate dose of proton pump inhibitor. Colitis finding could be radiologic finding. At this time, there are no other symptoms. This would be checked on an outpatient basis at a later time, however empiric antibiotic might help. With respect to shortness of breath and wheezing, he has probably had developed aspiration pneumonia as a result of nausea, vomiting, or during the act up, or at least aspiration pneumonitis, if not pne umonia. These are being addressed by his primary care doctor. Overall, he is stable from GI side. Other than above, we have no new recommendation; however, the jose luis dewitt is advised to follow up either with his previous hospice nurse practitioner or with us as he requires a fter he gets discharge. I have had a long discussion with the patient regarding his management plan. He has a good understan ding. He is agreeable. ROBERTH/JOELLE Voice ID: [id number] Report ID: [id number]
== END 2017-12-17 17:20 | disposition short-term general hospital (02) ==
LOC: ER 22:00 → ERHOLD 12-16 00:38 → 2ND 12-16 02:11
PROVIDERS: ADMIT Internal Medicine; ATTEND Family Medicine
DX: K52.9 Noninfective gastroenteritis and colitis, unspecified (principal); R11.10 Vomiting, unspecified; I12.9 Hypertensive chronic kidney disease with stage 1 through stage 4 chronic kidney disease, or unspecified chronic kidney disease; E11.22 Type 2 diabetes mellitus with diabetic chronic kidney disease; N18.9 Chronic kidney disease, unspecified; Z79.4 Long term (current) use of insulin; Z95.0 Presence of cardiac pacemaker; Z88.6 Allergy status to analgesic agent; Z91.013 Allergy to seafood
CPT/HCPCS: 36415 ×2; 74176; 80048 ×3; 80076; 82150; 82962 ×6; 83690; 83735; 85025 ×2; 94640; 96361; 96374; 96375; 99285; C9113; G0378 ×2; J0744 ×2; J1940; J2405 ×7; J2550; J7030 ×4; 81003; 81015; 96365